=== PATIENT | male | born 1975 | race Caucasian/White ===

== ENCOUNTER 2016-11-07 00:04 | Inpatient (IN) | payer BC ==
[2016-11-07] MEDS ORDERED: Sodium Chloride 0.9% 1,000 ML IV ONE ×2 (00:28→01:36)
[2016-11-07] MEDS ORDERED: Insulin Regular, Human 100 Units/ML 10 ML Vial SUBCUT STA (00:31)
--- NOTE | 2016-11-07 00:33 | EDM.PDOC ---
ED HPI GENERAL MEDICAL PROBLEM - General Chief Complaint: Neurological Problem Stated Complaint: ILL FOR A MONTH, DIZZY AND FELL Time Seen by Provider: 11/07/16 00:32 Source of Information: Reports: Patient - History of Present Illness INITIAL COMMENTS - FREE TEXT/NARRATIVE: HISTORY AND PHYSICAL: History of present illness: [] Patient dizzy and fell in his home over the last couple of days polydipsia polyuria No fever nausea vomiting chills sweats Review of systems: As per history of present illness and below otherwise all systems reviewed and negative. Past medical history: As per history of present illness and as reviewed below otherwise noncontributory. Surgical history: As per history of present illness and as reviewed below otherwise noncontributory. Social history: No reported history of drug or alcohol abuse. Family history: As per history of present illness and as reviewed below otherwise noncontributory. Physical exam: HEENT: Atraumatic, normocephalic, pupils reactive, negative for conjunctival pallor or scleral icterus, mucous membranes moist, throat clear, neck supple, nontender, trachea midline. Lungs: Clear to auscultation, breath sounds equal bilaterally, chest nontender. Heart: S1S2, regular, negative for clicks, rubs, or JVD. Abdomen: Soft, nondistended, nontender. Negative for masses or hepatosplenomegaly. Negative for costovertebral tenderness. Pelvis: Stable nontender. Genitourinary: Deferred. Rectal: Deferred. Extremities: Atraumatic, negative for cords or calf pain. Neurovascular unremarkable. Neuro: Awake, alert, oriented. Cranial nerves II through XII unremarkable. Cerebellum unremarkable. Motor and sensory unremarkable throughout. Exam nonfocal. Diagnostics: [] Lab as below Therapeutics: [] Liter normal saline bolus 10 units regular insulin IV 10 units regular insulin subcutaneous Insulin drip titrate Patient admitted Impression: [] New-onset diabetes Hyperglycemia HONK Definitive disposition and diagnosis as appropriate pending reevaluation and review of above. - Related Data Allergies Allergy/AdvReac Type Severity Reaction Status Date / Time No Known Allergies Allergy Verified 11/07/16 00:26 Home Meds: Home Meds Insulin Aspart [NovoLOG] 15 unit SUBCUT TIDAC #10 pen 11/08/16 [Rx] Insulin Glarg,Human.Rec.Analog [LantUS Solostar] 38 units SUBCUT BEDTIME #10 pen 11/08/16 [Rx] ED ROS GENERAL - Review of Systems Review Of Systems: See Below ED EXAM, GENERAL - Physical Exam Exam: See Below Course - Vital Signs Last Recorded V/S: Last Vital Signs Temp 36.4 C 11/08/16 08:00 Pulse 116 H 11/07/16 02:16 Resp 15 11/08/16 12:00 BP 135/76 11/08/16 12:00 Pulse Ox 96 11/08/16 12:00 - Orders/Labs/Meds Labs: Laboratory Tests 11/07/16 11/07/16 11/07/16 Range/Units 00:11 00:18 00:25 WBC 14.17 H (4.0-11.0) K/uL RBC 5.56 (4.50-5.90) M/uL Hgb 16.5 (13.0-17.0) g/dL Hct 56.6 H (38.0-50.0) % MCV 101.8 H (80.0-98.0) fL MCH 29.7 (27.0-32.0) pg MCHC 29.2 L (31.0-37.0) g/dL RDW Std Deviation 50.0 (28.0-62.0) fl RDW Coeff of Giorgio 14 (11.0-15.0) % Plt Count 305 (150-400) K/uL MPV 12.10 H (7.40-12.00) fL Neut % (Auto) 87.8 H (48.0-80.0) % Lymph % (Auto) 8.0 L (16.0-40.0) % [place] % (Auto) 4.0 (0.0-15.0) % Eos % (Auto) 0.0 (0.0-7.0) % Baso % (Auto) 0.2 (0.0-1.5) % Neut # 12.4 H (1.4-5.7) K/uL Lymph # 1.1 (0.6-2.4) K/uL [place] # 0.6 (0.0-0.8) K/uL Eos # 0.0 (0.0-0.7) K/uL Baso # 0.0 (0.0-0.1) K/uL Nucleated RBC % 0.0 /100WBC Nucleated RBCs # 0 K/uL ABG pH (7.35-7.45) ABG pCO2 (35-45) mmHG ABG pO2 (75-100) mmHG ABG HCO3 (22-26) mEq/L ABG Total CO2 ABG Base Excess (-2.0-2.0) Sodium (136-146) mmol/L Potassium (3.5-5.1) mmol/L Chloride (98-110) mmol/L Carbon Dioxide (21-31) mmol/L BUN (6.0-23.0) mg/dL Creatinine (0.6-1.5) mg/dL Est Cr Clr Drug Dosing Estimated GFR (MDRD) ml/min Glucose (60-110) mg/dL POC Glucose > 500 H (60-110) mg/dL Serum Osmolality (275-295) mosm/kg Calcium (8.8-10.8) mg/dL Total Bilirubin (0.1-1.5) mg/dL AST (5-40) IU/L ALT (8-54) IU/L Alkaline Phosphatase (40-150) Total Protein (6.0-8.0) g/dL Albumin (3.5-5.0) g/dL Globulin (2.0-3.5) g/dL Albumin/Globulin Ratio (1.3-2.8) Urine Color YELLOW Urine Appearance CLEAR Urine pH 5.5 (5.0-8.0) Ur Specific [place] <= 1.005 (1.001-1.035) Urine Protein NEGATIVE (NEGATIVE) mg/dL Urine Glucose (UA) >=1000 (NEGATIVE) mg/dL Urine Ketones TRACE H (NEGATIVE) mg/dL Urine Occult Blood NEGATIVE (NEGATIVE) Urine Nitrite NEGATIVE (NEGATIVE) Urine Bilirubin NEGATIVE (NEGATIVE) Urine Urobilinogen 0.2 (<2.0) EU/dL Ur Leukocyte Esterase NEGATIVE (NEGATIVE) Urine RBC NONE SEEN (0-2/HPF) Urine WBC NONE SEEN (0-5/HPF) Ur Epithelial Cells RARE (NONE-FEW) Urine Bacteria FEW (NEGATIVE) 11/07/16 11/07/16 11/07/16 Range/Units 00:25 00:25 01:25 WBC (4.0-11.0) K/uL RBC (4.50-5.90) M/uL Hgb (13.0-17.0) g/dL Hct (38.0-50.0) % MCV (80.0-98.0) fL MCH (27.0-32.0) pg MCHC (31.0-37.0) g/dL RDW Std Deviation (28.0-62.0) fl RDW Coeff of Giorgio (11.0-15.0) % Plt Count (150-400) K/uL MPV (7.40-12.00) fL Neut % (Auto) (48.0-80.0) % Lymph % (Auto) (16.0-40.0) % [place] % (Auto) (0.0-15.0) % Eos % (Auto) (0.0-7.0) % Baso % (Auto) (0.0-1.5) % Neut # (1.4-5.7) K/uL Lymph # (0.6-2.4) K/uL [place] # (0.0-0.8) K/uL Eos # (0.0-0.7) K/uL Baso # (0.0-0.1) K/uL Nucleated RBC % /100WBC Nucleated RBCs # K/uL ABG pH (7.35-7.45) ABG pCO2 (35-45) mmHG ABG pO2 (75-100) mmHG ABG HCO3 (22-26) mEq/L ABG Total CO2 ABG Base Excess (-2.0-2.0) Sodium 126 L (136-146) mmol/L Potassium 6.4 H (3.5-5.1) mmol/L Chloride 82 L (98-110) mmol/L Carbon Dioxide 21 (21-31) mmol/L BUN 32 H (6.0-23.0) mg/dL Creatinine 2.5 H (0.6-1.5) mg/dL Est Cr Clr Drug Dosing TNP Estimated GFR (MDRD) 28.9 ml/min Glucose 1616 H* (60-110) mg/dL POC Glucose > 500 H (60-110) mg/dL Serum Osmolality 383 H (275-295) mosm/kg Calcium 11.3 H (8.8-10.8) mg/dL Total Bilirubin 1.3 (0.1-1.5) mg/dL AST 16 (5-40) IU/L ALT 35 (8-54) IU/L Alkaline Phosphatase 170 H (40-150) Total Protein 10.4 H (6.0-8.0) g/dL Albumin 4.5 (3.5-5.0) g/dL Globulin 5.9 H (2.0-3.5) g/dL Albumin/Globulin Ratio 0.8 L (1.3-2.8) Urine Color Urine Appearance Urine pH (5.0-8.0) Ur Specific [place] (1.001-1.035) Urine Protein (NEGATIVE) mg/dL Urine Glucose (UA) (NEGATIVE) mg/dL Urine Ketones (NEGATIVE) mg/dL Urine Occult Blood (NEGATIVE) Urine Nitrite (NEGATIVE) Urine Bilirubin (NEGATIVE) Urine Urobilinogen (<2.0) EU/dL Ur Leukocyte Esterase (NEGATIVE) Urine RBC (0-2/HPF) Urine WBC (0-5/HPF) Ur Epithelial Cells (NONE-FEW) Urine Bacteria (NEGATIVE) 11/07/16 Range/Units 01:35 WBC (4.0-11.0) K/uL RBC (4.50-5.90) M/uL Hgb (13.0-17.0) g/dL Hct (38.0-50.0) % MCV (80.0-98.0) fL MCH (27.0-32.0) pg MCHC (31.0-37.0) g/dL RDW Std Deviation (28.0-62.0) fl RDW Coeff of Giorgio (11.0-15.0) % Plt Count (150-400) K/uL MPV (7.40-12.00) fL Neut % (Auto) (48.0-80.0) % Lymph % (Auto) (16.0-40.0) % [place] % (Auto) (0.0-15.0) % Eos % (Auto) (0.0-7.0) % Baso % (Auto) (0.0-1.5) % Neut # (1.4-5.7) K/uL Lymph # (0.6-2.4) K/uL [place] # (0.0-0.8) K/uL Eos # (0.0-0.7) K/uL Baso # (0.0-0.1) K/uL Nucleated RBC % /100WBC Nucleated RBCs # K/uL ABG pH 7.420 (7.35-7.45) ABG pCO2 37 (35-45) mmHG ABG pO2 87 (75-100) mmHG ABG HCO3 24 (22-26) mEq/L ABG Total CO2 20.5 ABG Base Excess -0.2 (-2.0-2.0) Sodium (136-146) mmol/L Potassium (3.5-5.1) mmol/L Chloride (98-110) mmol/L Carbon Dioxide (21-31) mmol/L BUN (6.0-23.0) mg/dL Creatinine (0.6-1.5) mg/dL Est Cr Clr Drug Dosing Estimated GFR (MDRD) ml/min Glucose (60-110) mg/dL POC Glucose (60-110) mg/dL Serum Osmolality (275-295) mosm/kg Calcium (8.8-10.8) mg/dL Total Bilirubin (0.1-1.5) mg/dL AST (5-40) IU/L ALT (8-54) IU/L Alkaline Phosphatase (40-150) Total Protein (6.0-8.0) g/dL Albumin (3.5-5.0) g/dL Globulin (2.0-3.5) g/dL Albumin/Globulin Ratio (1.3-2.8) Urine Color Urine Appearance Urine pH (5.0-8.0) Ur Specific [place] (1.001-1.035) Urine Protein (NEGATIVE) mg/dL Urine Glucose (UA) (NEGATIVE) mg/dL Urine Ketones (NEGATIVE) mg/dL Urine Occult Blood (NEGATIVE) Urine Nitrite (NEGATIVE) Urine Bilirubin (NEGATIVE) Urine Urobilinogen (<2.0) EU/dL Ur Leukocyte Esterase (NEGATIVE) Urine RBC (0-2/HPF) Urine WBC (0-5/HPF) Ur Epithelial Cells (NONE-FEW) Urine Bacteria (NEGATIVE) Meds: Medications Discontinued Medications Generic Name Dose Route Start Last Admin Trade Name Freq PRN Reason Stop Dose Admin Albuterol/Ipratropium 3 ml 11/07/16 02:54 Duoneb 3.0-0.5 Mg/3 Ml NEB Q4HRRT PRN Shortness Of Breath/wheezing Enoxaparin Sodium 40 mg 11/07/16 09:00 11/08/16 09:08 Lovenox SUBCUT 40 mg DAILY LETTY Administration Sodium Chloride 1,000 mls @ 999 mls/hr 11/07/16 00:28 11/07/16 00:36 Normal Saline IV 11/07/16 01:28 999 mls/hr STAT ONE Administration Sodium Chloride 1,000 mls @ 999 mls/hr 11/07/16 01:36 11/07/16 01:37 Normal Saline IV 11/07/16 02:36 999 mls/hr .Bolus ONE Administration Insulin Human Regular 100 unit 100 mls @ 5 mls/hr 11/07/16 02:15 11/07/16 13: 15 / Sodium Chloride IV 3 unit/hr TITRATE LETTY 3 mls/hr Protocol Titration 5 UNIT/HR Sodium Chloride 1,000 mls @ 999 mls/hr 11/07/16 03:30 11/07/16 04:14 Normal Saline IV 11/07/16 04:31 Not Given ASDIRECTED LETTY Sodium Chloride 1,000 mls @ 999 mls/hr 11/07/16 03:45 11/07/16 05:00 Normal Saline IV 11/07/16 04:46 999 mls/hr ASDIRECTED LETTY Administration Sodium Chloride 1,000 mls @ 125 mls/hr 11/07/16 04:00 11/08/16 00:59 Normal Saline IV 125 mls/hr ASDIRECTED LETTY Administration Magnesium Sulfate 2 gm/ Premix 50 mls @ 50 mls/hr 11/07/16 14:52 11/07/16 15: 10 IV 11/07/16 15:51 50 mls/hr ONETIME ONE Administration Insulin Aspart 0 unit 11/07/16 20:00 11/08/16 17:14 Novolog SUBCUT 6 units Q4H LETTY Administration Protocol Insulin Aspart 10 unit 11/08/16 11:30 11/08/16 11:40 Novolog SUBCUT 10 units TIDAC LETTY Administration Insulin Aspart 15 unit 11/08/16 13:41 11/08/16 17:14 Novolog SUBCUT 15 units TIDAC LETTY Administration Insulin Glargine 30 units 11/07/16 21:00 11/07/16 20:16 Lantus Solostar SUBCUT 30 units BEDTIME LETTY Administration Insulin Glargine 36 units 11/08/16 21:00 Lantus Solostar SUBCUT BEDTIME LETTY Insulin Glargine 40 units 11/08/16 21:00 Lantus Solostar SUBCUT BEDTIME LETTY Insulin Human Regular 10 unit 11/07/16 00:28 11/07/16 00:40 Novolin R IVPUSH 11/07/16 00:29 10 units ONETIME ONE Administration Protocol Insulin Human Regular 10 unit 11/07/16 00:31 11/07/16 00:39 Novolin R SUBCUT 11/07/16 00:32 10 units NOW STA Administration Protocol Insulin Human Regular 0 unit 11/07/16 14:55 11/07/16 20:28 Novolin R SUBCUT Not Given Q4HR [facility] Protocol Methylprednisolone Sodium Succinate 60 mg 11/08/16 13:30 11/08/16 13:42 Solu-Medrol IVPUSH Not Given Q6H [facility] Morphine Sulfate 2 mg 11/07/16 02:54 Morphine IVPUSH Q2H PRN Pain (severe 7-10) Potassium Chloride 40 meq 11/07/16 14:50 11/07/16 15:10 Klor-Con M20 PO 11/07/16 14:51 40 meq ONETIME ONE Administration Sodium Chloride 10 ml 11/07/16 02:54 Saline Flush FLUSH ASDIRECTED PRN Keep Vein Open Sodium Chloride 2.5 ml 11/07/16 02:54 Saline Flush FLUSH ASDIRECTED PRN Keep Vein Open Departure - Departure Time of Disposition: 19:26 Disposition: Admitted As Inpatient 68 Condition: good Clinical Impression: Hyperosmolar non-ketotic state in patient with type 2 diabetes mellitus
[2016-11-07] MEDS: Insulin Regular, Human 100 Units/ML 10 ML Vial IVPUSH ONE ×2 (00:37→00:40)
[2016-11-07 01:21] LABS: CHLORIDE,CL 82 mmol/L (98-110); SODIUM,NA 126 mmol/L (136-146)
[2016-11-07] MEDS ORDERED: Sodium Chloride 0.9% 10 ML Syringe FLUSH PRN (02:54)
[2016-11-07] MEDS ORDERED: Morphine 2 MG/ML Syringe IVPUSH PRN (02:54)
[2016-11-07] MEDS ORDERED: Sodium Chloride 0.9% 2.5 ML Syringe FLUSH PRN (02:54)
[2016-11-07] MEDS ORDERED: Albuterol/Ipratropium 3.0-0.5 MG/3 ML Neb Soln NEB PRN (02:54)
[2016-11-07] MEDS: Sodium Chloride 0.9% 1,000 ML IV SCH ×4 (03:37→17:44)
[2016-11-07] MEDS ORDERED: Sodium Chloride 0.9% 1,000 ML IV SCH (03:45)
[2016-11-07] MEDS: Enoxaparin 40 MG/0.4 ML Syringe SUBCUT SCH (08:33)
[2016-11-07 10:04] LABS: CHLORIDE,CL 102 mmol/L (98-110); SODIUM,NA 141 mmol/L (136-146)
[2016-11-07 11:33] LABS: CHLORIDE,CL 104 mmol/L (98-110); SODIUM,NA 142 mmol/L (136-146)
[2016-11-07 13:43] LABS: CHLORIDE,CL 103 mmol/L (98-110); SODIUM,NA 140 mmol/L (136-146)
[2016-11-07] MEDS ORDERED: Potassium Chloride 20 MEQ Tab.ER PO ONE (14:50)
[2016-11-07] MEDS ORDERED: Magnesium Sulfate/Water 2 GM in Premix Bag 1 BAG IV ONE (14:52)
[2016-11-07] MEDS: Insulin Regular, Human 100 Units/ML 10 ML Vial SUBCUT SCH ×3 (15:07→20:28)
--- NOTE | 2016-11-07 16:50 | CT ---
EXAM DATE: 11/07/16 PATIENT'S AGE: 41 Patient: RONN PERALTA Facility: [place], [place] Site . Site : 1975 Study: CT Head [id number] 3:54:32 AM Ordering Physician: Herman Whitaker Final Report: INDICATION: fell INDICATION: Fall TECHNIQUE: CT head without contrast. COMPARISON: None FINDINGS: CSF spaces: Within normal limits for age. Brain parenchyma: The cummins-white differentiation is normal. No sign of mass, hemorrhage, or midline shift. Skull base and calvarium: The visualized paranasal sinuses and mastoid air cells demonstrate no acute or significant findings. The visualized orbits are grossly unremarkable. No skull fractures. IMPRESSION: Unremarkable noncontrast head CT. No evidence of acute intracranial trauma. Dictated by Rahul Swenson MD @ 11/07/2016 3:59:49 AM Dictated by: Rahul Swenson MD @ 11/07/2016 04:00:32 (Electronic Signature) Report Signed by Proxy and Original Signed Document filed in the Medical Record. [facility]
--- NOTE | 2016-11-07 18:49 | PCM.SN ---
- Free Text/Narrative Note: [id number]
[2016-11-07] MEDS: Insulin Aspart 100 Units/ML 3 ML Pen SUBCUT SCH ×2 (20:15→23:53)
[2016-11-07] MEDS ORDERED: Insulin Glargine,Human Rec. Analog 100 Units/ML 3 ML Pen SUBCUT SCH (21:00)
[2016-11-08] MEDS: Sodium Chloride 0.9% 1,000 ML IV SCH (00:59)
[2016-11-08] MEDS: Insulin Aspart 100 Units/ML 3 ML Pen SUBCUT SCH ×4 (03:41→17:14)
[2016-11-08 07:40] LABS: CHLORIDE,CL 100 mmol/L (98-110)
[2016-11-08 07:43] LABS: SODIUM,NA 135 mmol/L (136-146)
[2016-11-08] MEDS: Enoxaparin 40 MG/0.4 ML Syringe SUBCUT SCH (09:08)
[2016-11-08] MEDS ORDERED: Insulin Aspart 100 Units/ML 3 ML Pen SUBCUT SCH ×2 (11:30→13:41)
[2016-11-08] MEDS ORDERED: methylPREDNISolone Sodium Succinate 40 MG/1 ML SDV IVPUSH SCH (13:30)
[2016-11-08 14:24] VITALS: BP 135/76
--- NOTE | 2016-11-08 19:40 | PCM.SN ---
- Free Text/Narrative Note: [id number]
[2016-11-08] MEDS ORDERED: Insulin Glargine,Human Rec. Analog 100 Units/ML 3 ML Pen SUBCUT SCH ×2 (21:00)
--- NOTE | 2016-11-10 09:21 | HP ---
DATE OF : 1975 PRIMARY CARE PHYSICIAN: None PCP HISTORY OF PRESENT ILLNESS: The patient is a 41-year-old man, who presented to the emergency room because the patient felt dizzy in the bathroom around 12 midnight and he hit the wall in his apartment with his face. The TV fell down and his partner called EMS and he came to the emergency room. The patient has increased urination and increased thirst for the past few months and he states he lost about 30 pounds over the past 1 month. He also complained of feeling weakness in bilateral hands. He has difficulty to grab the door knob with his hands and complains of generalized weakness. PAST MEDICAL HISTORY: None. PAST SURGICAL HISTORY: None. ALLERGIES: The patient does not have any drug allergies. SOCIAL HISTORY: He does not drink alcohol. He smokes about half a pack per day and he said he did not smoke for the past 2 months and occasionally, he smokes marijuana. He does not currently have a job. FAMILY HISTORY: His mother was recently diagnosed with diabetes and his father is healthy. REVIEW OF SYSTEMS: A 12-point review of system is negative except as in history of present illness. PHYSICAL EXAMINATION: VITAL SIGNS: At admission, temperature 97.6, pulse rate 119, blood pressure 1871/121 and respiratory rate 18, oxygen saturation 97%. HEENT: Head, the patient has some erythema on the right eyebrow. His head is normocephalic. Pupils equally reactive to light. He has very dry oral mucosa and dry tongue. No throat erythema. NECK: Supple. No thyromegaly, no lymphadenopathy. HEART: S1, S2. Regular rhythm and rate. LUNGS: Clear to auscultation bilaterally. ABDOMEN: Soft. Nontender. Positive bowel sounds. EXTREMITIES: No edema. NEUROLOGIC: The patient is alert, oriented x3. There are no gross focal neurologic deficits. Sensation are intact to light touch. Muscle strength is 5/5 throughout. Finger-nose test is normal. Cranial nerves II through XII grossly intact. SKIN: No rash. Decreased turgor. LABORATORY DATA: At admission, WBC 14.19, hemoglobin 16.7, hematocrit 56.6, MCV 101.8. ABG show pH of 7.42, PCO2 37, PO2 87, bicarbonate 24. Sodium 126, potassium 6.4, chloride 82, carbon dioxide 21, BUN 32, creatinine 2.5. Estimated GFR 28.9, glucose 1616, AST 16, ALT 35, alkaline phosphatase 17, protein 10.4, albumin 4.5, globulin 5.9, hemoglobin A1c 12.6. Head CT was negative for acute disease, bleeding or ischemia. EKG showed sinus rhythm at 104, probably left atrium enlargement and complete right bundle branch block. Urinalysis show ketone trace and urine glucose more than 1000, pH 5.5, specific gravity less than 1.005, wbc none seen, rbc none seen. Leukocyte esterase negative. ASSESSMENT AND PLAN: Hyperglycemic, hyperosmolic state and diabetic ketoacidosis and hyponatremia, hyperkalemia, acute kidney insufficiency, elevated LFTs, hypercalcemia, new onset diabetes mellitus. We will admit the patient to ICU with insulin drip as per protocol. eICU was consulted and the patient received in the ER 20 units of regular insulin IV and 2 liter of normal saline. It was recommended by eICU. The patient should receive another 2 liters normal saline boluses. Afterwards, the patient should be continued with IV fluids normal saline hourly rate as per AICU. We will also childbirth educator and we will monitor electrolytes. Hyperkalemia. The patient received insulin 20 units IV. Follow up on next BMP. For acute kidney insufficiency, the patient will get IV fluids, f/up kidney function. For hypercalcemia, IV fluids. Follow up calcium level. For elevated LFTs, We will follow up liver function test for the Abnormal EKG. We will repeat EKG when the patient is more stable regarding his electrolytes and hyperglycemic hyperosmolar state. DVT prophylaxis, heparin subcu. For head trauma, we will do neuro check every 2 hours. For tobacco abuse, the patient was counseled to stop smoking. For drug use, the patient was advised to stop using marijuana. ANTOPET / MODL /[id number] ESTHER
--- NOTE | 2016-11-10 09:27 | DISCH ---
DATE OF DISCHARGE: 11/08/2016 PRIMARY CARE PHYSICIAN: None PCP HPI The patient is a 41-year-old male who was admitted to the hospital on 11/07/2016 due to generalized weakness and hyperglycemia around 1600. The patient was admitted to ICU. He also has profound dehydration and he said he lost about 30 pounds weight and has increased polyuria, polydipsia. HOSPITAL COURSE He was admitted to ICU and was treated with insulin drip and IV fluids and his hyperglycemia resolved. He was also found to have positive ketones in the blood and urine. The patient last night was switched to insulin 30 units subcutaneous and his last sugar in the morning was around 295. The patient was given about 10 units with meals, which later was increased to 15 units with meals and insulin on high sliding scale. The patient's blood sugar decreased to low 200s and he was discharged home with Lantus 38 units at bedtime and insulin aspart 15 units with meals. The patient was instructed how to check his blood sugar and how to use insulin by the railroad signal technician. He also had CT of the head which was negative , neurochecks q2 h because the patient was found dizzy prior to arrival to the emergency room and hit the head on the wall. His hemoglobin A1c was 12.6. PHYSICAL EXAMINATION: VITAL SIGNS: At discharge, his heart rate was 81, blood pressure 135/76, respiratory rate 15, and oxygen saturation was 96. HEENT: Head is atraumatic and normocephalic. Pupils are equal and reactive to light. NECK: Supple. No thyromegaly and no lymphadenopathy. HEART: S1 and S2. Regular rate and rhythm. No murmur. LUNGS: Clear to auscultation bilaterally. ABDOMEN: Soft and nontender. Positive bowel sounds. EXTREMITIES: No edema. DISCHARGE CONDITION: Stable. ACTIVITY: As tolerated. DISCHARGE DIET: The patient was recommended other diabetic diet. DISCHARGE INSTRUCTIONS: The patient will follow up with his PCP upon discharge within 1 week. He was also given glucometer strips and lancets for the glucometer and insulin . DISCHARGE DIAGNOSES: 1. Hyperglycemic Hyperosmolar state 2. diabetic ketoacidosis. 3. New-onset diabetes mellitus. 4. Elevated blood pressure. 5. head trauma ANTOPET / MODL /[id number] ESTHER
== END 2016-11-08 18:42 | disposition home or self-care (01) | DRG 420 ==
LOC: MW.ED 00:04 → MW.ICU 02:15
PROVIDERS: ADMIT Internal Medicine; ATTEND Internal Medicine
DX: E13.10 Other specified diabetes mellitus with ketoacidosis without coma (principal); Z79.4 Long term (current) use of insulin; E87.1 Hypo-osmolality and hyponatremia; E87.5 Hyperkalemia; N17.9 Acute kidney failure, unspecified; R79.89 Other specified abnormal findings of blood chemistry; E83.52 Hypercalcemia; R94.31 Abnormal electrocardiogram [ECG] [EKG]; S09.90XA Unspecified injury of head, initial encounter; W19.XXXA Unspecified fall, initial encounter; F17.200 Nicotine dependence, unspecified, uncomplicated; F12.90 Cannabis use, unspecified, uncomplicated
CPT/HCPCS: 36415; 36600; 70450; 70450-26; 80048; 80053; 81001; 81003; 82009; 82803; 82962; 83036; 83735; 83930; 84100; 85025; 85027; 93005; 96361; 96372; 96374; 99285; 99285-25; A9270-GY; J1650; J1815-GY ×2; J3475; J7040

== ENCOUNTER → 2016-11-25 | Outpatient (CLI) | payer BC ==
[2016-11-25 10:28] LABS: CHLORIDE,CL 107 mmol/L (98-110); SODIUM,NA 139 mmol/L (136-146)
== END ==
LOC: MW.CHIM 09:50
PROVIDERS: ATTEND Internal Medicine
DX: E11.9 Type 2 diabetes mellitus without complications (principal)
CPT/HCPCS: 36415; 80053; 80061; 82044; 84681

== ENCOUNTER 2021-04-22 13:20 | Inpatient (IN) | payer OTHER ==
[2021-04-22] MEDS ORDERED: Lactated Ringers 1,000 ML IV ONE ×2 (13:29→22:53)
[2021-04-22] MEDS ORDERED: Lactated Ringers 1,000 ML IV SCH ×2 (13:30→16:15)
--- NOTE | 2021-04-22 13:37 | EDM.PDOC ---
ED HPI GENERAL MEDICAL PROBLEM - General Chief Complaint: General Stated Complaint: EXTREMLY HIGH BLOOD GLUCOSE/ AT RISK FOR DKA Time Seen by Provider: 04/22/21 13:34 Source of Information: Reports: Patient History Limitations: Reports: No Limitations - History of Present Illness INITIAL COMMENTS - FREE TEXT/NARRATIVE: HISTORY AND PHYSICAL: History of present illness: Patient is a 45-year-old male who presents to the emergency room with complaints of elevated blood sugar and feeling generally unwell over the past 1 month. Patient states he has had type 2 diabetes since 2017. Initially he was placed on insulin to manage his diabetes but 4 years ago was taken off. He has been on oral Metformin but due to cost has not taken this over the past 3 to 4 months. He states he generally feels unwell over the past 1 month and has checked his blood sugars and they have been greater than 400. Patient denies any fever, chills, headache, change in vision, syncope or near syncope. Denies any chest pain, back pain, shortness of breath or cough. Denies any abdominal pain, nausea, vomiting, diarrhea, constipation or dysuria. Has not noted any blood in urine or stool. Patient has been eating and drinking appropriately. Review of systems: As per history of present illness and below otherwise all systems reviewed and negative. Past medical history: As per history of present illness and as reviewed below otherwise noncontributory. Surgical history: As per history of present illness and as reviewed below otherwise noncontributory. Social history: See social history for further information Family history: As per history of present illness and as reviewed below otherwise noncontributory. Physical exam: General: Well developed and well nourished 45-year-old male. Alert and orientated x 3. Nontoxic in appearance and in no acute distress. Vital signs are stable and have been reviewed by me. Nursing notes were reviewed. HEENT: Atraumatic, normocephalic, pupils equal and reactive bilaterally, negative for conjunctival pallor or scleral icterus, mucous membranes moist, trachea midline. No drooling or trismus noted. No meningeal signs. No hot potato voice noted. Lungs: Clear to auscultation bilaterally. No wheezes, rales, or rhonchi. Chest nontender. Normal work of breathing, no accessory muscles used. Heart: S1S2, regular rate and rhythm without overt murmur, gallops, or rubs. No JVD. No peripheral edema Abdomen: Soft, nondistended, nontender. Normoactive bowel sounds. Negative for masses or costovertebral tenderness. Skin: Intact, warm, dry. No lesions or rashes noted. Hematologic: No petechiae or purpra. Mucosa appropriate color and normal nail bed color and refill. Extremities: Atraumatic, moves all extremities per self without difficulty or deficits, negative for cords or calf pain. Neurovascular unremarkable. Neuro: Awake, alert, oriented. Cranial nerves II through XII unremarkable. Cerebellum unremarkable. Motor and sensory unremarkable throughout. Exam nonfocal. Psychiatric: Mood and affect are appropriate. Normal thought process. Answering questions appropriately. Notes: *This patient was seen and evaluated during the 2019 SARS-CoV-2 novel coronavirus pandemic period. Community viral transmission is ongoing at time of this encounter and the emergency department is operating under pandemic response procedures. Patient is a 45-year-old male who presents to the emergency room with complaints of generally feeling unwell. He attempted to go to the clinic and they were concerned he was at risk for DKA due to his blood sugars being over 400. Patient states he has not taken his Metformin in over 3 months as he is unable to afford his medication. Physical exam is unremarkable. He is agreeable to lab work and possible admission. Lab has had to redilute his CMP as the are stating his triglycerides are greater than 2000. This will take longer to receive his appropriate glucose. His vital signs are stable and he has received 2 L of fluids. Patient's blood sugar is 781, lactate of 3.9. Sodium is 123, corrected sodium is 134-139. Insulin and insulin drip have been initiated. I spoke with Dr. Negron about keeping this patient for further care and management. [facility] I have talked with the patient about today's findings, in addition to providing specific details for plan of care. Reassessment at the time of disposition demonstrates that the patient is in no acute distress. Blood sugars will be continued to be monitored until he is transferred to the floor Diagnostics: CBC, CMP, Lipase, UA, ABG, COVID-19, EKG, Troponin, TSH, INR, Ketones Therapeutics: IV fluids, Insulin, insulin drip Impression: Medication noncompliance due to cost DKA Definitive disposition and diagnosis as appropriate pending reevaluation and review of above. Duration: Week(s): - Related Data Allergies Allergy/AdvReac Type Severity Reaction Status Date / Time No Known Allergies Allergy Verified 04/22/21 17:47 Home Meds: Home Meds . [No Known Home Meds] 04/22/21 [History] Past Medical History - Past Health History Medical/Surgical History: Denies Medical/Surgical History HEENT History: Reports: None Cardiovascular History: Reports: None Respiratory History: Reports: None Gastrointestinal History: Reports: None Genitourinary History: Reports: None Musculoskeletal History: Reports: None Neurological History: Reports: None Psychiatric History: Reports: None Endocrine/Metabolic History: Reports: Diabetes, Type II Hematologic History: Reports: None Immunologic History: Reports: None Oncologic (Cancer) History: Reports: None Dermatologic History: Reports: None - Infectious Disease History Infectious Disease History: Reports: Chicken Pox - Past Surgical History Head Surgeries/Procedures: Reports: None Social & Family History - Family History Family Medical History: No Pertinent Family History HEENT: Reports: None Endocrine/Metabolic: Reports: Diabetes, type II - Tobacco Use Tobacco Use Status *Q: Never Tobacco User - Caffeine Use Caffeine Use: Reports: None - Recreational Drug Use Recreational Drug Use: No ED ROS GENERAL - Review of Systems Review Of Systems: Comprehensive ROS is negative, except as noted in HPI. ED EXAM, GENERAL - Physical Exam Exam: See Below (See dictation) Course - Vital Signs Last Recorded V/S: Last Vital Signs Temp 97.2 F 04/22/21 17:00 Pulse 86 04/22/21 19:00 Resp 16 04/22/21 19:00 BP 126/62 04/22/21 19:00 Pulse Ox 95 04/22/21 19:00 - Orders/Labs/Meds Orders: Active Orders 24 hr Category Date Time Status Admission Status [Patient Status] [ADT] Stat ADT 04/22/21 15:42 Active Dextrose 50% in Water Med 04/22/21 15:29 Active 50 ml IVPUSH ASDIRECTED PRN Glucagon,Human Recombinant [GlucaGen] Med 04/22/21 15:29 Active 1 mg IM ASDIRECTED PRN Lactated Ringers [Ringers, Lactated] 1,000 ml Med 04/22/21 13:30 Active IV ASDIRECTED Medication Orders Albuterol/Ipratropium (Albuterol/Ipratropium 3.0-0.5 Mg/3 Ml Neb Soln) 3 ml NEB Q4HRRT PRN PRN Reason: Shortness of Breath Dextrose/Water (50% Dextrose In Water 50 Ml Syringe) 50 ml IVPUSH ASDIRECTED PRN PRN Reason: Hypoglycemia Dextrose/Water (50% Dextrose In Water 50 Ml Syringe) 50 ml IVPUSH ASDIRECTED PRN PRN Reason: Hypoglycemia Glucagon (Glucagon,Human Recombinant 1 Mg Vial) 1 mg IM ASDIRECTED PRN PRN Reason: Hypoglycemia Glucagon (Glucagon,Human Recombinant 1 Mg Vial) 1 mg IM ASDIRECTED PRN PRN Reason: Hypoglycemia Lactated Ringer's (Ringers, Lactated) 1,000 mls @ 999 mls/hr IV ASDIRECTED LETTY Last Admin: 04/22/21 13:37 Dose: 999 mls/hr Documented by: TONI Pantoprazole Sodium 40 mg/ (Sodium Chloride) 10 mls @ 300 mls/hr IV Q24H LETTY Last Admin: 04/22/21 17:13 Dose: 300 mls/hr Documented by: BARBRA Insulin Regular in 0.9 % NACL (Myxredlin In Ns 100 Unit/100 Ml) 100 mls @ 4 mls/hr IV TITRATE LETTY; Protocol Last Titration: 04/22/21 19:02 Dose: 3 mls/hr, 3 mls/hr Documented by: BARBRA Cosigned by: MIGUEL ÁNGEL Titration: 04/22/21 18:15 Dose: 2.5 mls/hr, 2.5 mls/hr Documented by: BARBRA Cosigned by: TAYLOR Admin: 04/22/21 17:05 Dose: 4 mls/hr, 4 mls/hr Documented by: BARBRA Cosigned by: TAYLOR Dextrose/Sodium Chloride (Dextrose 5%-1/2 Ns) 1,000 mls @ 125 mls/hr IV ASDIRECTED LETTY Last Infusion: 04/22/21 18:33 Dose: 0 mls/hr Documented by: Admin: 04/22/21 18:27 Dose: 125 mls/hr Documented by: BARBRA Insulin Aspart (Insulin Aspart 100 Units/Ml 3 Ml Pen) 0 unit SUBCUT TIDAC LETTY; Protocol Insulin Glargine (Insulin Glargine,Human Rec. Analog 100 Units/Ml 3 Ml Pen) 5 units SUBCUT BEDTIME LETTY Last Admin: 04/22/21 19:05 Dose: 5 unit Documented by: BARBRA Ondansetron HCl (Ondansetron 4 Mg/2 Ml Sdv) 4 mg IVPUSH Q4H PRN PRN Reason: Nausea/Vomiting Labs: Laboratory Tests 04/22/21 04/22/21 04/22/21 Range/Units 13:30 13:30 13:30 WBC 7.29 (4.0-11.0) K/uL RBC 5.17 (4.50-5.90) M/uL Hgb 15.9 (13.0-17.0) g/dL Hct 45.2 (38.0-50.0) % MCV 87.4 (80.0-98.0) fL MCH 30.8 (27.0-32.0) pg MCHC 35.2 (31.0-37.0) g/dL RDW Std Deviation 41.5 (28.0-62.0) fl RDW Coeff of Giorgio 13 (11.0-15.0) % Plt Count 241 (150-400) K/uL MPV 11.00 (7.40-12.00) fL Neut % (Auto) 66.3 (48.0-80.0) % Lymph % (Auto) 22.8 (16.0-40.0) % [place] % (Auto) 8.1 (0.0-15.0) % Eos % (Auto) 2.1 (0.0-7.0) % Baso % (Auto) 0.7 (0.0-1.5) % Neut # (Auto) 4.8 (1.4-5.7) K/uL Lymph # (Auto) 1.7 (0.6-2.4) K/uL [place] # (Auto) 0.6 (0.0-0.8) K/uL Eos # (Auto) 0.2 (0.0-0.7) K/uL Baso # (Auto) 0.1 (0.0-0.1) K/uL Nucleated RBC % 0.0 /100WBC Nucleated RBCs # 0 K/uL INR 0.94 ABG pH (7.35-7.45) ABG pCO2 (35-45) mmHG ABG pO2 (80-105) mmHG ABG HCO3 (22-26) mEq/L ABG Total CO2 (23-27) mmol/L ABG Base Excess (-2.0-3.0) Sodium 123 L (136-148) mmol/L Potassium 5.4 H (3.5-5.1) mmol/L Chloride 88 L (98-107) mmol/L Carbon Dioxide 15.3 L (21.0-32.0) mmol/L BUN 16 (7.0-18.0) mg/dL Creatinine 1.1 (0.8-1.3) mg/dL Est Cr Clr Drug Dosing 103.49 mL/min Estimated GFR (MDRD) > 60.0 ml/min Glucose 781 H* (74-106) mg/dL Hemoglobin A1c (4.5 - 6.2) % Lactic Acid (0.4-2.0) mmol/L Calcium 8.0 L (8.5-10.1) mg/dL Magnesium 2.2 (1.8-2.4) mg/dL Total Bilirubin 0.7 (0.2-1.0) mg/dL AST 38 H (15-37) IU/L ALT 60 (14-63) IU/L Alkaline Phosphatase 131 H (46-116) U/L Troponin I < 0.050 (0.000-0.056) ng/mL Total Protein 7.4 (6.4-8.2) g/dL Albumin 3.8 (3.4-5.0) g/dL Globulin 3.6 (2.6-4.0) g/dL Albumin/Globulin Ratio 1.1 (0.9-1.6) Lipase 148 (73-393) U/L TSH, Ultra Sensitive 2.13 (0.36-3.74) uIU/mL Urine Color Urine Appearance Urine pH (5.0-8.0) Ur Specific [place] (1.001-1.035) Urine Protein (NEGATIVE) mg/dL Urine Glucose (UA) (NEGATIVE) mg/dL Urine Ketones (NEGATIVE) mg/dL Urine Occult Blood (NEGATIVE) Urine Nitrite (NEGATIVE) Urine Bilirubin (NEGATIVE) Urine Urobilinogen (<2.0) EU/dL Ur Leukocyte Esterase (NEGATIVE) Ketones (NEG) SARS-CoV-2 RNA (SON) (NEGATIVE) 04/22/21 04/22/21 04/22/21 Range/Units 13:30 13:38 13:50 WBC (4.0-11.0) K/uL RBC (4.50-5.90) M/uL Hgb (13.0-17.0) g/dL Hct (38.0-50.0) % MCV (80.0-98.0) fL MCH (27.0-32.0) pg MCHC (31.0-37.0) g/dL RDW Std Deviation (28.0-62.0) fl RDW Coeff of Giorgio (11.0-15.0) % Plt Count (150-400) K/uL MPV (7.40-12.00) fL Neut % (Auto) (48.0-80.0) % Lymph % (Auto) (16.0-40.0) % [place] % (Auto) (0.0-15.0) % Eos % (Auto) (0.0-7.0) % Baso % (Auto) (0.0-1.5) % Neut # (Auto) (1.4-5.7) K/uL Lymph # (Auto) (0.6-2.4) K/uL [place] # (Auto) (0.0-0.8) K/uL Eos # (Auto) (0.0-0.7) K/uL Baso # (Auto) (0.0-0.1) K/uL Nucleated RBC % /100WBC Nucleated RBCs # K/uL INR ABG pH (7.35-7.45) ABG pCO2 (35-45) mmHG ABG pO2 (80-105) mmHG ABG HCO3 (22-26) mEq/L ABG Total CO2 (23-27) mmol/L ABG Base Excess (-2.0-3.0) Sodium (136-148) mmol/L Potassium (3.5-5.1) mmol/L Chloride (98-107) mmol/L Carbon Dioxide (21.0-32.0) mmol/L BUN (7.0-18.0) mg/dL Creatinine (0.8-1.3) mg/dL Est Cr Clr Drug Dosing mL/min Estimated GFR (MDRD) ml/min Glucose (74-106) mg/dL Hemoglobin A1c (4.5 - 6.2) % Lactic Acid 3.9 H* (0.4-2.0) mmol/L Calcium (8.5-10.1) mg/dL Magnesium (1.8-2.4) mg/dL Total Bilirubin (0.2-1.0) mg/dL AST (15-37) IU/L ALT (14-63) IU/L Alkaline Phosphatase (46-116) U/L Troponin I (0.000-0.056) ng/mL Total Protein (6.4-8.2) g/dL Albumin (3.4-5.0) g/dL Globulin (2.6-4.0) g/dL Albumin/Globulin Ratio (0.9-1.6) Lipase (73-393) U/L TSH, Ultra Sensitive (0.36-3.74) uIU/mL Urine Color Urine Appearance Urine pH (5.0-8.0) Ur Specific [place] (1.001-1.035) Urine Protein (NEGATIVE) mg/dL Urine Glucose (UA) (NEGATIVE) mg/dL Urine Ketones (NEGATIVE) mg/dL Urine Occult Blood (NEGATIVE) Urine Nitrite (NEGATIVE) Urine Bilirubin (NEGATIVE) Urine Urobilinogen (<2.0) EU/dL Ur Leukocyte Esterase (NEGATIVE) Ketones NEGATIVE (NEG) SARS-CoV-2 RNA (SON) NEGATIVE (NEGATIVE) 04/22/21 04/22/21 04/22/21 Range/Units 13:50 13:54 14:18 WBC (4.0-11.0) K/uL RBC (4.50-5.90) M/uL Hgb (13.0-17.0) g/dL Hct (38.0-50.0) % MCV (80.0-98.0) fL MCH (27.0-32.0) pg MCHC (31.0-37.0) g/dL RDW Std Deviation (28.0-62.0) fl RDW Coeff of Giorgio (11.0-15.0) % Plt Count (150-400) K/uL MPV (7.40-12.00) fL Neut % (Auto) (48.0-80.0) % Lymph % (Auto) (16.0-40.0) % [place] % (Auto) (0.0-15.0) % Eos % (Auto) (0.0-7.0) % Baso % (Auto) (0.0-1.5) % Neut # (Auto) (1.4-5.7) K/uL Lymph # (Auto) (0.6-2.4) K/uL [place] # (Auto) (0.0-0.8) K/uL Eos # (Auto) (0.0-0.7) K/uL Baso # (Auto) (0.0-0.1) K/uL Nucleated RBC % /100WBC Nucleated RBCs # K/uL INR ABG pH 7.37 (7.35-7.45) ABG pCO2 39 (35-45) mmHG ABG pO2 47 L (80-105) mmHG ABG HCO3 22 (22-26) mEq/L ABG Total CO2 19.7 L (23-27) mmol/L ABG Base Excess -2.8 L (-2.0-3.0) Sodium (136-148) mmol/L Potassium (3.5-5.1) mmol/L Chloride (98-107) mmol/L Carbon Dioxide (21.0-32.0) mmol/L BUN (7.0-18.0) mg/dL Creatinine (0.8-1.3) mg/dL Est Cr Clr Drug Dosing mL/min Estimated GFR (MDRD) ml/min Glucose (74-106) mg/dL Hemoglobin A1c 13.0 H (4.5 - 6.2) % Lactic Acid (0.4-2.0) mmol/L Calcium (8.5-10.1) mg/dL Magnesium (1.8-2.4) mg/dL Total Bilirubin (0.2-1.0) mg/dL AST (15-37) IU/L ALT (14-63) IU/L Alkaline Phosphatase (46-116) U/L Troponin I (0.000-0.056) ng/mL Total Protein (6.4-8.2) g/dL Albumin (3.4-5.0) g/dL Globulin (2.6-4.0) g/dL Albumin/Globulin Ratio (0.9-1.6) Lipase (73-393) U/L TSH, Ultra Sensitive (0.36-3.74) uIU/mL Urine Color YELLOW Urine Appearance CLEAR Urine pH 6.0 (5.0-8.0) Ur Specific [place] <= 1.005 (1.001-1.035) Urine Protein NEGATIVE (NEGATIVE) mg/dL Urine Glucose (UA) >=1000 (NEGATIVE) mg/dL Urine Ketones NEGATIVE (NEGATIVE) mg/dL Urine Occult Blood NEGATIVE (NEGATIVE) Urine Nitrite NEGATIVE (NEGATIVE) Urine Bilirubin NEGATIVE (NEGATIVE) Urine Urobilinogen 0.2 (<2.0) EU/dL Ur Leukocyte Esterase NEGATIVE (NEGATIVE) Ketones (NEG) SARS-CoV-2 RNA (SON) (NEGATIVE) Meds: Medications Generic Name Dose Route Start Last Admin Trade Name Freq PRN Reason Stop Dose Admin Albuterol/Ipratropium 3 ml 04/22/21 16:06 Albuterol/Ipratropium 3.0-0.5 Mg/3 Ml Neb Soln NEB Q4HRRT PRN Shortness of Breath Dextrose/Water 50 ml 04/22/21 15:29 50% Dextrose In Water 50 Ml Syringe IVPUSH ASDIRECTED PRN Hypoglycemia Dextrose/Water 50 ml 04/22/21 18:32 50% Dextrose In Water 50 Ml Syringe IVPUSH ASDIRECTED PRN Hypoglycemia Glucagon 1 mg 04/22/21 15:29 Glucagon,Human Recombinant 1 Mg Vial IM ASDIRECTED PRN Hypoglycemia Glucagon 1 mg 04/22/21 18:32 Glucagon,Human Recombinant 1 Mg Vial IM ASDIRECTED PRN Hypoglycemia Lactated Ringer's 1,000 mls @ 999 mls/hr 04/22/21 13:30 04/22/21 13:37 Ringers, Lactated IV 999 mls/hr ASDIRECTED LETTY Administration Pantoprazole Sodium 40 mg/ 10 mls @ 300 mls/hr 04/22/21 16:15 04/22/21 17:13 Sodium Chloride IV 300 mls/hr Q24H LETTY Administration Insulin Regular in 0.9 % NACL 100 mls @ 4 mls/hr 04/22/21 17:05 04/22/21 19:02 Myxredlin In Ns 100 Unit/100 Ml IV 3 mls/hr TITRATE LETTY 3 mls/hr Titration Protocol Dextrose/Sodium Chloride 1,000 mls @ 125 mls/hr 04/22/21 18:15 04/22/21 18:33 Dextrose 5%-1/2 Ns IV 0 mls/hr ASDIRECTED LETTY Infusion Insulin Aspart 0 unit 04/23/21 07:30 Insulin Aspart 100 Units/Ml 3 Ml Pen SUBCUT TIDAC LETTY Protocol Insulin Glargine 5 units 04/22/21 19:00 04/22/21 19:05 Insulin Glargine,Human Rec. Analog 100 Units/Ml 3 Ml Pen SUBCUT 5 unit BEDTIME LETTY Administration Ondansetron HCl 4 mg 04/22/21 16:05 Ondansetron 4 Mg/2 Ml Sdv IVPUSH Q4H PRN Nausea/Vomiting Discontinued Medications Generic Name Dose Route Start Last Admin Trade Name Freq PRN Reason Stop Dose Admin Lactated Ringer's 1,000 mls @ 999 mls/hr 04/22/21 13:29 04/22/21 13:37 Ringers, Lactated IV 04/22/21 14:29 999 mls/hr .BOLUS ONE Administration Insulin Regular in 0.9 % NACL 100 mls @ 13.154 mls/hr 04/22/21 15:30 04/22/21 17:35 Myxredlin In Ns 100 Unit/100 Ml IV 0.03 units/kg/hr TITRATE LETTY 4 mls/hr Titration Protocol 0.1 UNITS/KG/HR Potassium Chloride/Sodium Chloride 1,000 mls @ 125 mls/hr 04/22/21 16:00 Normal Saline With 40 Meq Kcl IV ASDIRECTED LETTY Sodium Chloride 1,000 mls @ 250 mls/hr 04/22/21 16:00 04/22/21 17:17 Sodium Chloride 0.45% IV 0 mls/hr ASDIRECTED LETTY Infusion Insulin Regular in 0.9 % NACL 100 mls @ 13.154 mls/hr 04/22/21 16:15 Myxredlin In Ns 100 Unit/100 Ml IV TITRATE LETTY Protocol 0.1 UNITS/KG/HR Lactated Ringer's 1,000 mls @ 250 mls/hr 04/22/21 16:15 04/22/21 17:18 Ringers, Lactated IV 250 mls/hr ASDIRECTED LETTY Administration Potassium Chloride/Dextrose/Sod Cl 1,000 mls @ 125 mls/hr 04/22/21 18:15 D5 1/2 Ns W/ 20 Meq/L Kcl IV ASDIRECTED LETTY Insulin Human Regular 10 unit 04/22/21 15:29 04/22/21 16:02 Insulin Regular, Human 100 Units/Ml 10 Ml Vial SUBCUT 04/22/21 15:30 10 unit ONETIME ONE Administration Protocol Departure - Departure Time of Disposition: 19:56 Disposition: Admitted As Inpatient 68 Clinical Impression: DKA (diabetic ketoacidosis) Qualifiers: Diabetes mellitus type: type 2 Diabetes mellitus complication detail: without coma Qualified Code(s): E11.10 - Type 2 diabetes mellitus with ketoacidosis without coma - Discharge Information Sepsis Event Note (ED) - Evaluation Sepsis Screening Result: No Definite Risk - Focused Exam Vital Signs: Vital Signs Temp Pulse Resp BP Pulse Ox 04/22/21 15:18 88 18 139/76 97 04/22/21 14:40 88 18 140/78 97 04/22/21 13:50 98.0 F 97 18 169/101 H 97 04/22/21 13:24 98.2 F 101 H 18 166/102 H 95 - My Orders Last 24 Hours: My Active Orders 04/22/21 15:29 Dextrose 50% in Water 50 ml IVPUSH ASDIRECTED PRN Glucagon,Human Recombinant [GlucaGen] 1 mg IM ASDIRECTED PRN 04/22/21 15:42 Admission Status [Patient Status] [ADT] Stat - Assessment/Plan Last 24 Hours: My Active Orders 04/22/21 15:29 Dextrose 50% in Water 50 ml IVPUSH ASDIRECTED PRN Glucagon,Human Recombinant [GlucaGen] 1 mg IM ASDIRECTED PRN 04/22/21 15:42 Admission Status [Patient Status] [ADT] Stat
[2021-04-22 15:13] LABS: BLOOD UREA NITROGEN,BUN 16 mg/dL (7.0-18.0); CARBON DIOXIDE,CO2 15.3 mmol/L (21.0-32.0); CHLORIDE,CL 88 mmol/L (98-107); POTASSIUM,K 5.4 mmol/L (3.5-5.1); SODIUM,NA 123 mmol/L (136-148)
[2021-04-22 15:14] LABS: LIPASE 148 U/L (73-393)
[2021-04-22] MEDS ORDERED: 50% Dextrose in Water 50 ML Syringe IVPUSH PRN ×3 (15:29→18:47)
[2021-04-22] MEDS ORDERED: Glucagon,Human Recombinant 1 MG Vial IM PRN ×3 (15:29→18:47)
[2021-04-22] MEDS ORDERED: Insulin Regular, Human 100 Units/ML 10 ML Vial SUBCUT ONE (15:29)
[2021-04-22 15:30] LABS: GLUCOSE RANDOM 781 mg/dL (74-106)
[2021-04-22] MEDS ORDERED: Insulin Regular in 0.9 % NACL 100 ML IV SCH ×3 (15:30→17:05)
[2021-04-22] MEDS ORDERED: Sodium Chloride 0.9% with KCl 1,000 ML IV SCH (16:00)
[2021-04-22] MEDS ORDERED: Sodium Chloride 0.45% 1,000 ML IV SCH (16:00)
[2021-04-22] MEDS ORDERED: Ondansetron 4 MG/2 ML SDV IVPUSH PRN (16:05)
[2021-04-22] MEDS ORDERED: Albuterol/Ipratropium 3.0-0.5 MG/3 ML Neb Soln NEB PRN (16:06)
[2021-04-22] MEDS ORDERED: Pantoprazole 40 MG in Sodium Chloride 0.9% 10 ML IV SCH (16:15)
--- NOTE | 2021-04-22 16:23 | PCM.HP.2 ---
H&P History of Present Illness - General Date of Service: 04/22/21 Admit Problem/Dx: Admission Diagnosis/Problem Admission Diagnosis/Problem Diabetic ketoacidosis - History of Present Illness Initial Comments - Free Text/Narative: 45-year-old male presents to the emergency room with complaints of fatigue and elevated blood sugar. Patient states he has been feeling unwell for the past 1 month. Past medical history include type 2 diabetes, hypertension, hyper triglyceridemia. Patient states he is currently taking Jardiance, Ozempic, Metformin for diabetes. Hydrochlorothiazide, losartan for hypertension. F enofibrate and atorvastatin for hypertriglyceridemia. Patient states that he is not taking any of his home medications for the past 3 to 4 months. Patient states that his blood sugar in the past month has been greater than 400. On admission patient denies fever, chills, headache, change in vision, dizziness, lightheadedness, chest pain, abdominal pain, shortness of breath, nausea, vomiting, dysuria, polyuria, polydipsia. Labs on admission include white blood cell count 7.29, hemoglobin 15.9, platelet 241, ABG pH 7.37, sodium 123, potassium 5.4, chloride 80, BUN 16, creatinine 1.1, glucose 181, lactic acid 3.9. UA negative for Ketones. Patient admitted to the ICU for HHS with metabolic acidosis. Will resume insulin drip and fluids. Monitor electrolytes. - Related Data Allergies/Adverse Reactions: Allergies Allergy/AdvReac Type Severity Reaction Status Date / Time No Known Allergies Allergy Verified 04/22/21 17:47 Home Medications: Home Meds . [No Known Home Meds] 04/22/21 [History] Past Medical History - Past Health History Medical/Surgical History: Denies Medical/Surgical History HEENT History: Reports: None Cardiovascular History: Reports: None Respiratory History: Reports: None Gastrointestinal History: Reports: None Genitourinary History: Reports: None Musculoskeletal History: Reports: None Neurological History: Reports: None Psychiatric History: Reports: None Endocrine/Metabolic History: Reports: Diabetes, Type II Hematologic History: Reports: None Immunologic History: Reports: None Oncologic (Cancer) History: Reports: None Dermatologic History: Reports: None - Infectious Disease History Infectious Disease History: Reports: Chicken Pox - Past Surgical History Head Surgeries/Procedures: Reports: None Social & Family History - Family History Family Medical History: No Pertinent Family History HEENT: Reports: None Endocrine/Metabolic: Reports: Diabetes, type II - Tobacco Use Tobacco Use Status *Q: Never Tobacco User - Caffeine Use Caffeine Use: Reports: None - Recreational Drug Use Recreational Drug Use: No H&P Review of Systems - Review of Systems: Review Of Systems: See Below General: Denies: Fever, Chills HEENT: Denies: Dysphasia Pulmonary: Denies: Shortness of Breath, Wheezing, Cough Cardiovascular: Denies: Chest Pain, Palpitations, Edema Gastrointestinal: Denies: Abdominal Pain, Diarrhea, Decreased Appetite, Nausea, Vomiting Genitourinary: Denies: Dysuria Psychiatric: Denies: Confusion, Depression Neurological: Denies: Confusion, Dizziness Exam - Exam Exam: See Below - Vital Signs Vital Signs: Last Vital Signs Temp 98.0 F 04/22/21 13:50 Pulse 88 04/22/21 15:18 Resp 18 04/22/21 15:18 BP 139/76 04/22/21 15:18 Pulse Ox 97 04/22/21 15:18 Weight: 290 lb - Exam General: Alert, Oriented Lungs: Clear to Auscultation, Normal Respiratory Effort Cardiovascular: Regular Rate, Regular Rhythm GI/Abdominal Exam: Soft, Non-Tender Extremities: No Pedal Edema Neuro Extensive - Mental Status: Alert, Oriented x3 - Patient Data Lab Results Last 24 hrs: Laboratory Results - last 24 hr 04/22/21 04/22/21 04/22/21 Range/Units 13:30 13:30 13:30 WBC 7.29 (4.0-11.0) K/uL RBC 5.17 (4.50-5.90) M/uL Hgb 15.9 (13.0-17.0) g/dL Hct 45.2 (38.0-50.0) % MCV 87.4 (80.0-98.0) fL MCH 30.8 (27.0-32.0) pg MCHC 35.2 (31.0-37.0) g/dL RDW Std Deviation 41.5 (28.0-62.0) fl RDW Coeff of Giorgio 13 (11.0-15.0) % Plt Count 241 (150-400) K/uL MPV 11.00 (7.40-12.00) fL Neut % (Auto) 66.3 (48.0-80.0) % Lymph % (Auto) 22.8 (16.0-40.0) % [place] % (Auto) 8.1 (0.0-15.0) % Eos % (Auto) 2.1 (0.0-7.0) % Baso % (Auto) 0.7 (0.0-1.5) % Neut # (Auto) 4.8 (1.4-5.7) K/uL Lymph # (Auto) 1.7 (0.6-2.4) K/uL [place] # (Auto) 0.6 (0.0-0.8) K/uL Eos # (Auto) 0.2 (0.0-0.7) K/uL Baso # (Auto) 0.1 (0.0-0.1) K/uL Nucleated RBC % 0.0 /100WBC Nucleated RBCs # 0 K/uL INR 0.94 ABG pH (7.35-7.45) ABG pCO2 (35-45) mmHG ABG pO2 (80-105) mmHG ABG HCO3 (22-26) mEq/L ABG Total CO2 (23-27) mmol/L ABG Base Excess (-2.0-3.0) Sodium 123 L (136-148) mmol/L Potassium 5.4 H (3.5-5.1) mmol/L Chloride 88 L (98-107) mmol/L Carbon Dioxide 15.3 L (21.0-32.0) mmol/L BUN 16 (7.0-18.0) mg/dL Creatinine 1.1 (0.8-1.3) mg/dL Est Cr Clr Drug Dosing 103.49 mL/min Estimated GFR (MDRD) > 60.0 ml/min Glucose 781 H* (74-106) mg/dL Lactic Acid (0.4-2.0) mmol/L Calcium 8.0 L (8.5-10.1) mg/dL Magnesium 2.2 (1.8-2.4) mg/dL Total Bilirubin 0.7 (0.2-1.0) mg/dL AST Not Reportable ALT Not Reportable Alkaline Phosphatase 131 H (46-116) U/L Troponin I < 0.050 (0.000-0.056) ng/mL Total Protein 7.4 (6.4-8.2) g/dL Albumin 3.8 (3.4-5.0) g/dL Globulin 3.6 (2.6-4.0) g/dL Albumin/Globulin Ratio 1.1 (0.9-1.6) Lipase 148 (73-393) U/L TSH, Ultra Sensitive 2.13 (0.36-3.74) uIU/mL Urine Color Urine Appearance Urine pH (5.0-8.0) Ur Specific [place] (1.001-1.035) Urine Protein (NEGATIVE) mg/dL Urine Glucose (UA) (NEGATIVE) mg/dL Urine Ketones (NEGATIVE) mg/dL Urine Occult Blood (NEGATIVE) Urine Nitrite (NEGATIVE) Urine Bilirubin (NEGATIVE) Urine Urobilinogen (<2.0) EU/dL Ur Leukocyte Esterase (NEGATIVE) Ketones (NEG) SARS-CoV-2 RNA (SON) (NEGATIVE) 04/22/21 04/22/21 04/22/21 Range/Units 13:30 13:38 13:50 WBC (4.0-11.0) K/uL RBC (4.50-5.90) M/uL Hgb (13.0-17.0) g/dL Hct (38.0-50.0) % MCV (80.0-98.0) fL MCH (27.0-32.0) pg MCHC (31.0-37.0) g/dL RDW Std Deviation (28.0-62.0) fl RDW Coeff of Giorgio (11.0-15.0) % Plt Count (150-400) K/uL MPV (7.40-12.00) fL Neut % (Auto) (48.0-80.0) % Lymph % (Auto) (16.0-40.0) % [place] % (Auto) (0.0-15.0) % Eos % (Auto) (0.0-7.0) % Baso % (Auto) (0.0-1.5) % Neut # (Auto) (1.4-5.7) K/uL Lymph # (Auto) (0.6-2.4) K/uL [place] # (Auto) (0.0-0.8) K/uL Eos # (Auto) (0.0-0.7) K/uL Baso # (Auto) (0.0-0.1) K/uL Nucleated RBC % /100WBC Nucleated RBCs # K/uL INR ABG pH (7.35-7.45) ABG pCO2 (35-45) mmHG ABG pO2 (80-105) mmHG ABG HCO3 (22-26) mEq/L ABG Total CO2 (23-27) mmol/L ABG Base Excess (-2.0-3.0) Sodium (136-148) mmol/L Potassium (3.5-5.1) mmol/L Chloride (98-107) mmol/L Carbon Dioxide (21.0-32.0) mmol/L BUN (7.0-18.0) mg/dL Creatinine (0.8-1.3) mg/dL Est Cr Clr Drug Dosing mL/min Estimated GFR (MDRD) ml/min Glucose (74-106) mg/dL Lactic Acid 3.9 H* (0.4-2.0) mmol/L Calcium (8.5-10.1) mg/dL Magnesium (1.8-2.4) mg/dL Total Bilirubin (0.2-1.0) mg/dL AST ALT Alkaline Phosphatase (46-116) U/L Troponin I (0.000-0.056) ng/mL Total Protein (6.4-8.2) g/dL Albumin (3.4-5.0) g/dL Globulin (2.6-4.0) g/dL Albumin/Globulin Ratio (0.9-1.6) Lipase (73-393) U/L TSH, Ultra Sensitive (0.36-3.74) uIU/mL Urine Color Urine Appearance Urine pH (5.0-8.0) Ur Specific [place] (1.001-1.035) Urine Protein (NEGATIVE) mg/dL Urine Glucose (UA) (NEGATIVE) mg/dL Urine Ketones (NEGATIVE) mg/dL Urine Occult Blood (NEGATIVE) Urine Nitrite (NEGATIVE) Urine Bilirubin (NEGATIVE) Urine Urobilinogen (<2.0) EU/dL Ur Leukocyte Esterase (NEGATIVE) Ketones NEGATIVE (NEG) SARS-CoV-2 RNA (SON) NEGATIVE (NEGATIVE) 04/22/21 04/22/21 Range/Units 13:54 14:18 WBC (4.0-11.0) K/uL RBC (4.50-5.90) M/uL Hgb (13.0-17.0) g/dL Hct (38.0-50.0) % MCV (80.0-98.0) fL MCH (27.0-32.0) pg MCHC (31.0-37.0) g/dL RDW Std Deviation (28.0-62.0) fl RDW Coeff of Giorgio (11.0-15.0) % Plt Count (150-400) K/uL MPV (7.40-12.00) fL Neut % (Auto) (48.0-80.0) % Lymph % (Auto) (16.0-40.0) % [place] % (Auto) (0.0-15.0) % Eos % (Auto) (0.0-7.0) % Baso % (Auto) (0.0-1.5) % Neut # (Auto) (1.4-5.7) K/uL Lymph # (Auto) (0.6-2.4) K/uL [place] # (Auto) (0.0-0.8) K/uL Eos # (Auto) (0.0-0.7) K/uL Baso # (Auto) (0.0-0.1) K/uL Nucleated RBC % /100WBC Nucleated RBCs # K/uL INR ABG pH 7.37 (7.35-7.45) ABG pCO2 39 (35-45) mmHG ABG pO2 47 L (80-105) mmHG ABG HCO3 22 (22-26) mEq/L ABG Total CO2 19.7 L (23-27) mmol/L ABG Base Excess -2.8 L (-2.0-3.0) Sodium (136-148) mmol/L Potassium (3.5-5.1) mmol/L Chloride (98-107) mmol/L Carbon Dioxide (21.0-32.0) mmol/L BUN (7.0-18.0) mg/dL Creatinine (0.8-1.3) mg/dL Est Cr Clr Drug Dosing mL/min Estimated GFR (MDRD) ml/min Glucose (74-106) mg/dL Lactic Acid (0.4-2.0) mmol/L Calcium (8.5-10.1) mg/dL Magnesium (1.8-2.4) mg/dL Total Bilirubin (0.2-1.0) mg/dL AST ALT Alkaline Phosphatase (46-116) U/L Troponin I (0.000-0.056) ng/mL Total Protein (6.4-8.2) g/dL Albumin (3.4-5.0) g/dL Globulin (2.6-4.0) g/dL Albumin/Globulin Ratio (0.9-1.6) Lipase (73-393) U/L TSH, Ultra Sensitive (0.36-3.74) uIU/mL Urine Color YELLOW Urine Appearance CLEAR Urine pH 6.0 (5.0-8.0) Ur Specific [place] <= 1.005 (1.001-1.035) Urine Protein NEGATIVE (NEGATIVE) mg/dL Urine Glucose (UA) >=1000 (NEGATIVE) mg/dL Urine Ketones NEGATIVE (NEGATIVE) mg/dL Urine Occult Blood NEGATIVE (NEGATIVE) Urine Nitrite NEGATIVE (NEGATIVE) Urine Bilirubin NEGATIVE (NEGATIVE) Urine Urobilinogen 0.2 (<2.0) EU/dL Ur Leukocyte Esterase NEGATIVE (NEGATIVE) Ketones (NEG) SARS-CoV-2 RNA (SON) (NEGATIVE) Result Diagrams: 04/22/21 13:30 04/22/21 13:30 Sepsis Event Note - Evaluation Sepsis Screening Result: No Definite Risk - Focused Exam Vital Signs: Vital Signs Temp Pulse Resp BP Pulse Ox 04/22/21 15:18 88 18 139/76 97 04/22/21 14:40 88 18 140/78 97 04/22/21 13:50 98.0 F 97 18 169/101 H 97 04/22/21 13:24 98.2 F 101 H 18 166/102 H 95 - Problem List (1) Hypertension SNOMED Code(s): 84404606 ICD Code: I10 - ESSENTIAL (PRIMARY) HYPERTENSION Status: Acute Current Visit: Yes (2) Hypertriglyceridemia SNOMED Code(s): 944174936 ICD Code: E78.1 - PURE HYPERGLYCERIDEMIA Status: Acute Current Visit: Yes (3) Diabetes type 2, uncontrolled SNOMED Code(s): 574185890, 535142103 ICD Code: E11.65 - TYPE 2 DIABETES MELLITUS WITH HYPERGLYCEMIA Status: Acute Current Visit: Yes (4) Hyperosmolar hyperglycemic state (HHS) SNOMED Code(s): 447369131 ICD Code: E11.00 - TYPE 2 DIAB W HYPROSM W/O NONKET HYPRGLY-HYPROS COMA (NKHHC); E11.65 - TYPE 2 DIABETES MELLITUS WITH HYPERGLYCEMIA Status: Acute Current Visit: Yes (5) Metabolic acidosis due to diabetes mellitus SNOMED Code(s): 260167408 ICD Code: E11.69 - TYPE 2 DIABETES MELLITUS WITH OTHER SPECIFIED COMPLICATION; E87.2 - ACIDOSIS Status: Acute Current Visit: Yes Problem List Initiated/Reviewed/Updated: Yes Orders Last 24hrs: Active Orders 24 hr Category Date Time Status Admission Status [Patient Status] [ADT] Stat ADT 04/22/21 15:42 Active Accu Check [Blood Glucose Check, Bedside] [RC] Q1H Care 04/22/21 16:05 Ordered Antiembolic Devices [RC] PER UNIT ROUTINE Care 04/22/21 16:06 Ordered Oxygen Therapy [RC] PRN Care 04/22/21 16:07 Ordered RT Aerosol Therapy [RC] ASDIRECTED Care 04/22/21 16:07 Ordered VTE/DVT Education [RC] PER UNIT ROUTINE Care 04/22/21 16:07 Ordered Vital Signs [RC] Q4H Care 04/22/21 16:07 Ordered NPO After Midnight [Nothing per Oral After Midnight Diet 04/22/21 Dinner Acti ve Diet] [DIET] BASIC METABOLIC PANEL,BMP [CHEM] Q4H Lab 04/22/21 17:30 Ordered BASIC METABOLIC PANEL,BMP [CHEM] Q4H Lab 04/22/21 21:30 Ordered BASIC METABOLIC PANEL,BMP [CHEM] Q4H Lab 04/23/21 01:30 Ordered BASIC METABOLIC PANEL,BMP [CHEM] Q4H Lab 04/23/21 05:30 Ordered GLYCOSYLATED HEMOGLOBIN,HGBA1C [CHEM] Routine Lab 04/22/21 15:54 Ordered LIPID PANEL [CHEM] Routine Lab 04/22/21 15:51 Ordered REFLEX LACTIC ACID YES OR NO [CHEM] Routine Lab 04/22/21 15:36 Received Albuterol/Ipratropium [DuoNeb 3.0-0.5 MG/3 ML] Med 04/22/21 16:06 Ordered 3 ml NEB Q4HRRT PRN Dextrose 50% in Water Med 04/22/21 15:29 Active 50 ml IVPUSH ASDIRECTED PRN Glucagon,Human Recombinant [GlucaGen] Med 04/22/21 15:29 Active 1 mg IM ASDIRECTED PRN Insulin Regular in 0.9 % NACL [Myxredlin in NS 100 UNIT Med 04/22/21 15:30 Active /100 ML] 100 ml IV TITRATE Insulin Regular in 0.9 % NACL [Myxredlin in NS 100 UNIT Med 04/22/21 16:15 Ordered /100 ML] 100 ml IV TITRATE Lactated Ringers [Ringers, Lactated] 1,000 ml Med 04/22/21 13:30 Active IV ASDIRECTED Lactated Ringers [Ringers, Lactated] 1,000 ml Med 04/22/21 16:15 Ordered IV ASDIRECTED Ondansetron [Zofran] Med 04/22/21 16:05 Ordered 4 mg IVPUSH Q4H PRN Pantoprazole [ProTONIX IV] 40 mg Med 04/22/21 16:15 Ordered Sodium Chloride 0.9% [Normal Saline] 10 ml IV Q24H Sodium Chloride 0.45% 1,000 ml Med 04/22/21 16:00 Active IV ASDIRECTED SCD [Sequential Compression Device] [OM.PC] Routine Oth 04/22/21 16:06 Ordered Resuscitation Status Routine Resus Stat 04/22/21 16:07 Ordered Medication Orders Albuterol/Ipratropium (Albuterol/Ipratropium 3.0-0.5 Mg/3 Ml Neb Soln) 3 ml NEB Q4HRRT PRN PRN Reason: Shortness of Breath Dextrose/Water (50% Dextrose In Water 50 Ml Syringe) 50 ml IVPUSH ASDIRECTED PRN PRN Reason: Hypoglycemia Glucagon (Glucagon,Human Recombinant 1 Mg Vial) 1 mg IM ASDIRECTED PRN PRN Reason: Hypoglycemia Lactated Ringer's (Ringers, Lactated) 1,000 mls @ 999 mls/hr IV ASDIRECTED LETTY Last Admin: 04/22/21 13:37 Dose: 999 mls/hr Documented by: TONI Insulin Regular in 0.9 % NACL (Myxredlin In Ns 100 Unit/100 Ml) 100 mls @ 13.154 mls/hr IV TITRATE LETTY; Protocol Last Admin: 04/22/21 16:03 Dose: 0.1 units/kg/hr, 13.154 mls/hr Documented by: TONI Cosigned by: ROSLYN Sodium Chloride (Sodium Chloride 0.45%) 1,000 mls @ 250 mls/hr IV ASDIRECTED LETTY Last Admin: 04/22/21 16:04 Dose: 250 mls/hr Documented by: TONI Pantoprazole Sodium 40 mg/ (Sodium Chloride) 10 mls @ 300 mls/hr IV Q24H LETTY Insulin Regular in 0.9 % NACL (Myxredlin In Ns 100 Unit/100 Ml) 100 mls @ 13.1 54 mls/hr IV TITRATE LETTY; Protocol Lactated Ringer's (Ringers, Lactated) 1,000 mls @ 250 mls/hr IV ASDIRECTED LETTY Ondansetron HCl (Ondansetron 4 Mg/2 Ml Sdv) 4 mg IVPUSH Q4H PRN PRN Reason: Nausea/Vomiting Assessment/Plan Comment:: HHS with mild metabolic acidosis- Anion Gap 20. Urine Ketone negative. Insulin drip per protocol, patient received 2 LR boluses in ED, continue LR at 250 mL/h, BMP every 4, Accu-Cheks every hour, n.p.o. except sips of water, monitor labs for electrolytes as needed, Zofran as needed, IV Protonix, DuoNebs as needed, SCDs. Patient states home medications to include Ozempic, Metformin, Jardiance, losartan, Hydrochlorothiazide, fenofibrate, atorvastatin. Will resume as needed.
--- NOTE | 2021-04-22 18:04 | PN ---
THC Physician - Brief Progress [id number]/16/2021 17:59[facility] [place] hook, MARCO ANTONIO - MAGLAIE (ELSIE) - MAGALIE OCONNELLNIKKIChase JohnsonDate of Service 04/22/2021 17:59HPI/Events o f Note eICU Admission NotePatient is a 45-year-old male admitted for management of DKAOn cameraxthe p atient is awake, laying comfortably in bedReviewedVitalsEMR notesLabsAvailable imagingAvailable micro MedicationseICU impressionsDKADiabetesQI measureseICU recommendationsDKA management per protocolMaint ain on insulin drip until anion gap is closed x2 checks and serum bicarb is greater than 18, patient can then be transitioned to long-acting insulin with a 1 hour overlap with insulin dripVTE prophylaxi s noted with SCDsGI prophylaxis: PPIThank you for allowing us to participate in the care of your daniela ent.Interventions Nkcoc-Bhuj-Dghu disturbance - evaluation and management, Hyperglycemia - active tit ration of insulin therapy
[2021-04-22 18:11] LABS: BLOOD UREA NITROGEN,BUN 13 mg/dL (7.0-18.0); CARBON DIOXIDE,CO2 25.6 mmol/L (21.0-32.0); CHLORIDE,CL 97 mmol/L (98-107); GLUCOSE RANDOM 279 mg/dL (74-106); POTASSIUM,K 3.7 mmol/L (3.5-5.1); SODIUM,NA 133 mmol/L (136-148)
[2021-04-22] MEDS ORDERED: Dextrose 5%-0.45% NaCl 1,000 ML IV SCH (18:15)
[2021-04-22] MEDS ORDERED: D5 1/2 NS w/ 20 mEq/L KCl 1,000 ML IV SCH (18:15)
--- NOTE | 2021-04-22 18:32 | PCM.EKG ---
#1 Interpretation EKG Date: 04/22/21 Time: 13:50 Rhythm: NSR Rate (Beats/Min): 97 [place]: Normal P-Wave: Present QRS: RBBB ST-T: Normal QT: Normal Comparison: No Change (11/07/16) EKG Interpretation Comments: Sinus with RBBB
[2021-04-22] MEDS: Insulin Glargine,Human Rec. Analog 100 Units/ML 3 ML Pen SUBCUT SCH ×2 (19:05→21:07)
[2021-04-22 19:19] VITALS: PULSE 86
[2021-04-22 21:56] LABS: BLOOD UREA NITROGEN,BUN 12 mg/dL (7.0-18.0); CARBON DIOXIDE,CO2 27.1 mmol/L (21.0-32.0); CHLORIDE,CL 100 mmol/L (98-107); GLUCOSE RANDOM 201 mg/dL (74-106); POTASSIUM,K 3.7 mmol/L (3.5-5.1); SODIUM,NA 137 mmol/L (136-148)
[2021-04-23 06:11] LABS: BLOOD UREA NITROGEN,BUN 12 mg/dL (7.0-18.0); CHLORIDE,CL 100 mmol/L (98-107); GLUCOSE RANDOM 276 mg/dL (74-106); SODIUM,NA 134 mmol/L (136-148)
[2021-04-23] MEDS ORDERED: Insulin Aspart 100 Units/ML 3 ML Pen SUBCUT SCH (07:30)
[2021-04-23 10:30] VITALS: BP 122/82
--- NOTE | 2021-04-23 11:11 | PCM.DCSUM1 ---
Discharge Summary - Hospital Course Free Text/Narrative:: 45-year-old male presents to the emergency room on 04-22-21 with complaints of fatigue and elevated blood sugar. Patient states he has been feeling unwell for the past 1 month. Past medical history include type 2 diabetes, hypertension, hyper triglyceridemia. Patient states he is currently taking Jardiance, Ozempic, Metformin for diabetes. Hydrochlorothiazide, losartan for hypertension. Fenofibrate and atorvastatin for hypertriglyceridemia. Patient states that he is not taking any of his home medications for the past 3 to 4 months. Patient states that his blood sugar in the past month has been greater than 400. On admission patient denies fever, chills, headache, change in vision, dizziness, lightheadedness, chest pain, abdominal pain, shortness of breath, nausea, vomiting, dysuria, polyuria, polydipsia. Labs on admission include white blood cell count 7.29, hemoglobin 15.9, platelet 241, ABG pH 7.37, sodium 123, potassium 5.4, chloride 80, BUN 16, creatinine 1.1, glucose 181, lactic acid 3.9. UA negative for Ketones. Patient admitted to the ICU for HHS with metabolic acidosis. Treated with insulin drip and fluids. Monitor electrolytes. Patient was transitioned to insulin sub q and tolerated diet well. At discharge, patient's home diabetes medications of Jardiance, Ozempic, Metformin were discontinued. Patient prescribed 10 units of Lantus taken prior to bedtime with glucose check prior administration, NovoLog sliding scale insulin low protocol with meals. Patient encouraged to consume low carbohydrate, low-fat foods and abstain from alcohol consumption. Patient's hypertensive medications of hydrochlorothiazide and losartan resumed, patient's hypertriglyceridemia medications of fenofibrate, atorvastatin resumed on discharge. In addition patient to start vascepa 2gm bid for triglyceride reduction. Medication dosages to be adjusted by PCP at follow up appointment. Patient discharged home in stable condition. - Discharge Data Discharge Date: 04/23/21 Discharge Disposition: Home, Self-Care 01 Condition: Stable - Referral to Home Health Primary Care Physician: Kash Rasmussen MD - Discharge Diagnosis/Problem(s) (1) Hypertension SNOMED Code(s): 37020136 ICD Code: I10 - ESSENTIAL (PRIMARY) HYPERTENSION Status: Acute (2) Hypertriglyceridemia SNOMED Code(s): 669583537 ICD Code: E78.1 - PURE HYPERGLYCERIDEMIA Status: Acute (3) Diabetes type 2, uncontrolled SNOMED Code(s): 553977582, 661352607 ICD Code: E11.65 - TYPE 2 DIABETES MELLITUS WITH HYPERGLYCEMIA Status: Acute (4) Hyperosmolar hyperglycemic state (HHS) SNOMED Code(s): 133890535 ICD Code: E11.00 - TYPE 2 DIAB W HYPROSM W/O NONKET HYPRGLY-HYPROS COMA ([facility]); E11.65 - TYPE 2 DIABETES MELLITUS WITH HYPERGLYCEMIA Status: Acute (5) Metabolic acidosis due to diabetes mellitus SNOMED Code(s): 128798575 ICD Code: E11.69 - TYPE 2 DIABETES MELLITUS WITH OTHER SPECIFIED COMPLICATION; E87.2 - ACIDOSIS Status: Acute - Patient Instructions Diet: Diabetic Diet Other/Special Instructions: PATIENT TO REDUCE CONSUMPTION OF SIMPLE CARBOHYDRATES, SUGARS AND FATS. ABSTAIN FROM ALCOHOL COMSUMPTION - Discharge Plan *PRESCRIPTION DRUG MONITORING PROGRAM REVIEWED*: Not Applicable *COPY OF PRESCRIPTION DRUG MONITORING REPORT IN PATIENT ANNEMARIE: Not Applicable Prescriptions/Med Rec: Blood-Glucose Meter [Contour Next Glucose Meter] 1 each DAILY #1 kit Lancets/Blood Glucose Strips [Fora [id number] Strp-Lnct] 1 each TID #30 combo..pkg Blood Sugar Diagnostic [Glucose Test Strip] 1 each TID #120 strip Insulin Glarg,Human.Rec.Analog [Lantus] 10 unit SUBCUT DAILY #1 pen Insulin Aspart [NovoLOG] See Protocol SUBCUT TIDAC #1 pen Icosapent Ethyl [Vascepa] 2 gm PO BID #120 capsule Home Medications: Home Meds Blood Sugar Diagnostic [Glucose Test Strip] 1 each TID #120 strip 04/23/21 [Rx] Blood-Glucose Meter [Contour Next Glucose Meter] 1 each DAILY #1 kit 04/23/21 [Rx] Fenofibrate Nanocrystallized [Fenofibrate] 145 mg PO DAILY 04/23/21 [History] Icosapent Ethyl [Vascepa] 2 gm PO BID #120 capsule 04/23/21 [Rx] Insulin Aspart [NovoLOG] See Protocol SUBCUT TIDAC #1 pen 04/23/21 [Rx] Insulin Glarg,Human.Rec.Analog [Lantus] 10 unit SUBCUT DAILY #1 pen 04/23/21 [Rx] Lancets/Blood Glucose Strips [Fora [id number] Strp-Lnct] 1 each TID #30 combo..pkg 04/23/21 [Rx] Losartan [Cozaar] 100 mg PO DAILY 04/23/21 [History] atorvaSTATin [Lipitor] 40 mg PO BEDTIME 04/23/21 [History] hydroCHLOROthiazide [Hydrochlorothiazide] 12.5 mg PO DAILY 04/23/21 [History] Patient Handouts: Insulin Aspart injection, Preventing High Cholesterol, Diabetic Ketoacidosis, Hyperglycemia, [id number], Insulin Glargine injection, Preventing Diabetic Ketoacidosis, Icosapent ethyl capsules, High Cholesterol Referrals: Kash Rasmussen MD [Primary Care Provider] - 04/25/21 9:00 am (Please arrive 15 minutes before appointment. Please bring photo ID with insurance and wear mask.) - Discharge Summary/Plan Comment DC Time >30 min.: Yes Total # of Minutes for Discharge Time: 45 minutes - General Info Date of Service: 04/23/21 - Review of Systems General: Denies: Fever, Chills Pulmonary: Denies: Shortness of Breath Cardiovascular: Denies: Chest Pain, Dyspnea on Exertion, Edema Gastrointestinal: Denies: Abdominal Pain, Nausea, Vomiting Neurological: Denies: Confusion, Dizziness, Headache Psychiatric: Denies: Confusion - Patient Data Vitals - Most Recent: Last Vital Signs Temp 96 F L 04/23/21 07:00 Pulse 86 04/22/21 19:00 Resp 14 04/23/21 10:00 BP 122/82 04/23/21 10:00 Pulse Ox 94 L 04/23/21 10:00 Weight - Most Recent: 293 lb 8 oz I&O - Last 24 hours: Intake & Output 04/22/21 04/23/21 04/23/21 22:59 06:59 14:59 Intake Total 2170 Output Total 0 Balance 2170 Lab Results - Last 24 hrs: Laboratory Results - last 24 hr 04/22/21 04/22/21 04/22/21 Range/Units 13:30 13:30 13:30 WBC 7.29 (4.0-11.0) K/uL RBC 5.17 (4.50-5.90) M/uL Hgb 15.9 (13.0-17.0) g/dL Hct 45.2 (38.0-50.0) % MCV 87.4 (80.0-98.0) fL MCH 30.8 (27.0-32.0) pg MCHC 35.2 (31.0-37.0) g/dL RDW Std Deviation 41.5 (28.0-62.0) fl RDW Coeff of Giorgio 13 (11.0-15.0) % Plt Count 241 (150-400) K/uL MPV 11.00 (7.40-12.00) fL Neut % (Auto) 66.3 (48.0-80.0) % Lymph % (Auto) 22.8 (16.0-40.0) % [place] % (Auto) 8.1 (0.0-15.0) % Eos % (Auto) 2.1 (0.0-7.0) % Baso % (Auto) 0.7 (0.0-1.5) % Neut # (Auto) 4.8 (1.4-5.7) K/uL Lymph # (Auto) 1.7 (0.6-2.4) K/uL [place] # (Auto) 0.6 (0.0-0.8) K/uL Eos # (Auto) 0.2 (0.0-0.7) K/uL Baso # (Auto) 0.1 (0.0-0.1) K/uL Nucleated RBC % 0.0 /100WBC Nucleated RBCs # 0 K/uL INR 0.94 ABG pH (7.35-7.45) ABG pCO2 (35-45) mmHG ABG pO2 (80-105) mmHG ABG HCO3 (22-26) mEq/L ABG Total CO2 (23-27) mmol/L ABG Base Excess (-2.0-3.0) Sodium 123 L (136-148) mmol/L Potassium 5.4 H (3.5-5.1) mmol/L Chloride 88 L (98-107) mmol/L Carbon Dioxide 15.3 L (21.0-32.0) mmol/L BUN 16 (7.0-18.0) mg/dL Creatinine 1.1 (0.8-1.3) mg/dL Est Cr Clr Drug Dosing 103.49 mL/min Estimated GFR (MDRD) > 60.0 ml/min Glucose 781 H* (74-106) mg/dL POC Glucose (70-99) mg/dL Hemoglobin A1c (4.5 - 6.2) % Lactic Acid (0.4-2.0) mmol/L Calcium 8.0 L (8.5-10.1) mg/dL Phosphorus (2.6-4.7) mg/dL Magnesium 2.2 (1.8-2.4) mg/dL Total Bilirubin 0.7 (0.2-1.0) mg/dL AST 38 H (15-37) IU/L ALT 60 (14-63) IU/L Alkaline Phosphatase 131 H (46-116) U/L Troponin I < 0.050 (0.000-0.056) ng/mL Total Protein 7.4 (6.4-8.2) g/dL Albumin 3.8 (3.4-5.0) g/dL Globulin 3.6 (2.6-4.0) g/dL Albumin/Globulin Ratio 1.1 (0.9-1.6) Triglycerides (0-200) mg/dL Cholesterol (50-200) mg/dL HDL Cholesterol (40-60) mg/dL Cholesterol/HDL Ratio (3.3-6.0) Lipase 148 (73-393) U/L TSH, Ultra Sensitive 2.13 (0.36-3.74) uIU/mL Urine Color Urine Appearance Urine pH (5.0-8.0) Ur Specific [place] (1.001-1.035) Urine Protein (NEGATIVE) mg/dL Urine Glucose (UA) (NEGATIVE) mg/dL Urine Ketones (NEGATIVE) mg/dL Urine Occult Blood (NEGATIVE) Urine Nitrite (NEGATIVE) Urine Bilirubin (NEGATIVE) Urine Urobilinogen (<2.0) EU/dL Ur Leukocyte Esterase (NEGATIVE) Ketones (NEG) SARS-CoV-2 RNA (SON) (NEGATIVE) 04/22/21 04/22/21 04/22/21 Range/Units 13:30 13:38 13:50 WBC (4.0-11.0) K/uL RBC (4.50-5.90) M/uL Hgb (13.0-17.0) g/dL Hct (38.0-50.0) % MCV (80.0-98.0) fL MCH (27.0-32.0) pg MCHC (31.0-37.0) g/dL RDW Std Deviation (28.0-62.0) fl RDW Coeff of Giorgio (11.0-15.0) % Plt Count (150-400) K/uL MPV (7.40-12.00) fL Neut % (Auto) (48.0-80.0) % Lymph % (Auto) (16.0-40.0) % [place] % (Auto) (0.0-15.0) % Eos % (Auto) (0.0-7.0) % Baso % (Auto) (0.0-1.5) % Neut # (Auto) (1.4-5.7) K/uL Lymph # (Auto) (0.6-2.4) K/uL [place] # (Auto) (0.0-0.8) K/uL Eos # (Auto) (0.0-0.7) K/uL Baso # (Auto) (0.0-0.1) K/uL Nucleated RBC % /100WBC Nucleated RBCs # K/uL INR ABG pH (7.35-7.45) ABG pCO2 (35-45) mmHG ABG pO2 (80-105) mmHG ABG HCO3 (22-26) mEq/L ABG Total CO2 (23-27) mmol/L ABG Base Excess (-2.0-3.0) Sodium (136-148) mmol/L Potassium (3.5-5.1) mmol/L Chloride (98-107) mmol/L Carbon Dioxide (21.0-32.0) mmol/L BUN (7.0-18.0) mg/dL Creatinine (0.8-1.3) mg/dL Est Cr Clr Drug Dosing mL/min Estimated GFR (MDRD) ml/min Glucose (74-106) mg/dL POC Glucose (70-99) mg/dL Hemoglobin A1c (4.5 - 6.2) % Lactic Acid 3.9 H* (0.4-2.0) mmol/L Calcium (8.5-10.1) mg/dL Phosphorus (2.6-4.7) mg/dL Magnesium (1.8-2.4) mg/dL Total Bilirubin (0.2-1.0) mg/dL AST (15-37) IU/L ALT (14-63) IU/L Alkaline Phosphatase (46-116) U/L Troponin I (0.000-0.056) ng/mL Total Protein (6.4-8.2) g/dL Albumin (3.4-5.0) g/dL Globulin (2.6-4.0) g/dL Albumin/Globulin Ratio (0.9-1.6) Triglycerides (0-200) mg/dL Cholesterol (50-200) mg/dL HDL Cholesterol (40-60) mg/dL Cholesterol/HDL Ratio (3.3-6.0) Lipase (73-393) U/L TSH, Ultra Sensitive (0.36-3.74) uIU/mL Urine Color Urine Appearance Urine pH (5.0-8.0) Ur Specific [place] (1.001-1.035) Urine Protein (NEGATIVE) mg/dL Urine Glucose (UA) (NEGATIVE) mg/dL Urine Ketones (NEGATIVE) mg/dL Urine Occult Blood (NEGATIVE) Urine Nitrite (NEGATIVE) Urine Bilirubin (NEGATIVE) Urine Urobilinogen (<2.0) EU/dL Ur Leukocyte Esterase (NEGATIVE) Ketones NEGATIVE (NEG) SARS-CoV-2 RNA (SON) NEGATIVE (NEGATIVE) 04/22/21 04/22/21 04/22/21 Range/Units 13:50 13:54 14:18 WBC (4.0-11.0) K/uL RBC (4.50-5.90) M/uL Hgb (13.0-17.0) g/dL Hct (38.0-50.0) % MCV (80.0-98.0) fL MCH (27.0-32.0) pg MCHC (31.0-37.0) g/dL RDW Std Deviation (28.0-62.0) fl RDW Coeff of Giorgio (11.0-15.0) % Plt Count (150-400) K/uL MPV (7.40-12.00) fL Neut % (Auto) (48.0-80.0) % Lymph % (Auto) (16.0-40.0) % [place] % (Auto) (0.0-15.0) % Eos % (Auto) (0.0-7.0) % Baso % (Auto) (0.0-1.5) % Neut # (Auto) (1.4-5.7) K/uL Lymph # (Auto) (0.6-2.4) K/uL [place] # (Auto) (0.0-0.8) K/uL Eos # (Auto) (0.0-0.7) K/uL Baso # (Auto) (0.0-0.1) K/uL Nucleated RBC % /100WBC Nucleated RBCs # K/uL INR ABG pH 7.37 (7.35-7.45) ABG pCO2 39 (35-45) mmHG ABG pO2 47 L (80-105) mmHG ABG HCO3 22 (22-26) mEq/L ABG Total CO2 19.7 L (23-27) mmol/L ABG Base Excess -2.8 L (-2.0-3.0) Sodium (136-148) mmol/L Potassium (3.5-5.1) mmol/L Chloride (98-107) mmol/L Carbon Dioxide (21.0-32.0) mmol/L BUN (7.0-18.0) mg/dL Creatinine (0.8-1.3) mg/dL Est Cr Clr Drug Dosing mL/min Estimated GFR (MDRD) ml/min Glucose (74-106) mg/dL POC Glucose (70-99) mg/dL Hemoglobin A1c 13.0 H (4.5 - 6.2) % Lactic Acid (0.4-2.0) mmol/L Calcium (8.5-10.1) mg/dL Phosphorus (2.6-4.7) mg/dL Magnesium (1.8-2.4) mg/dL Total Bilirubin (0.2-1.0) mg/dL AST (15-37) IU/L ALT (14-63) IU/L Alkaline Phosphatase (46-116) U/L Troponin I (0.000-0.056) ng/mL Total Protein (6.4-8.2) g/dL Albumin (3.4-5.0) g/dL Globulin (2.6-4.0) g/dL Albumin/Globulin Ratio (0.9-1.6) Triglycerides (0-200) mg/dL Cholesterol (50-200) mg/dL HDL Cholesterol (40-60) mg/dL Cholesterol/HDL Ratio (3.3-6.0) Lipase (73-393) U/L TSH, Ultra Sensitive (0.36-3.74) uIU/mL Urine Color YELLOW Urine Appearance CLEAR Urine pH 6.0 (5.0-8.0) Ur Specific [place] <= 1.005 (1.001-1.035) Urine Protein NEGATIVE (NEGATIVE) mg/dL Urine Glucose (UA) >=1000 (NEGATIVE) mg/dL Urine Ketones NEGATIVE (NEGATIVE) mg/dL Urine Occult Blood NEGATIVE (NEGATIVE) Urine Nitrite NEGATIVE (NEGATIVE) Urine Bilirubin NEGATIVE (NEGATIVE) Urine Urobilinogen 0.2 (<2.0) EU/dL Ur Leukocyte Esterase NEGATIVE (NEGATIVE) Ketones (NEG) SARS-CoV-2 RNA (SON) (NEGATIVE) 04/22/21 04/22/21 04/22/21 Range/Units 17:01 17:41 17:41 WBC (4.0-11.0) K/uL RBC (4.50-5.90) M/uL Hgb (13.0-17.0) g/dL Hct (38.0-50.0) % MCV (80.0-98.0) fL MCH (27.0-32.0) pg MCHC (31.0-37.0) g/dL RDW Std Deviation (28.0-62.0) fl RDW Coeff of Giorgio (11.0-15.0) % Plt Count (150-400) K/uL MPV (7.40-12.00) fL Neut % (Auto) (48.0-80.0) % Lymph % (Auto) (16.0-40.0) % [place] % (Auto) (0.0-15.0) % Eos % (Auto) (0.0-7.0) % Baso % (Auto) (0.0-1.5) % Neut # (Auto) (1.4-5.7) K/uL Lymph # (Auto) (0.6-2.4) K/uL [place] # (Auto) (0.0-0.8) K/uL Eos # (Auto) (0.0-0.7) K/uL Baso # (Auto) (0.0-0.1) K/uL Nucleated RBC % /100WBC Nucleated RBCs # K/uL INR ABG pH (7.35-7.45) ABG pCO2 (35-45) mmHG ABG pO2 (80-105) mmHG ABG HCO3 (22-26) mEq/L ABG Total CO2 (23-27) mmol/L ABG Base Excess (-2.0-3.0) Sodium 133 L (136-148) mmol/L Potassium 3.7 (3.5-5.1) mmol/L Chloride 97 L (98-107) mmol/L Carbon Dioxide 25.6 (21.0-32.0) mmol/L BUN 13 (7.0-18.0) mg/dL Creatinine 0.8 (0.8-1.3) mg/dL Est Cr Clr Drug Dosing 143.06 mL/min Estimated GFR (MDRD) > 60.0 ml/min Glucose 279 H (74-106) mg/dL POC Glucose 337 H (70-99) mg/dL Hemoglobin A1c (4.5 - 6.2) % Lactic Acid (0.4-2.0) mmol/L Calcium 8.1 L (8.5-10.1) mg/dL Phosphorus 3.1 (2.6-4.7) mg/dL Magnesium 2.1 (1.8-2.4) mg/dL Total Bilirubin (0.2-1.0) mg/dL AST (15-37) IU/L ALT (14-63) IU/L Alkaline Phosphatase (46-116) U/L Troponin I (0.000-0.056) ng/mL Total Protein (6.4-8.2) g/dL Albumin (3.4-5.0) g/dL Globulin (2.6-4.0) g/dL Albumin/Globulin Ratio (0.9-1.6) Triglycerides 2584 H (0-200) mg/dL Cholesterol 282 H (50-200) mg/dL HDL Cholesterol 24 L (40-60) mg/dL Cholesterol/HDL Ratio 11.8 H (3.3-6.0) Lipase (73-393) U/L TSH, Ultra Sensitive (0.36-3.74) uIU/mL Urine Color Urine Appearance Urine pH (5.0-8.0) Ur Specific [place] (1.001-1.035) Urine Protein (NEGATIVE) mg/dL Urine Glucose (UA) (NEGATIVE) mg/dL Urine Ketones (NEGATIVE) mg/dL Urine Occult Blood (NEGATIVE) Urine Nitrite (NEGATIVE) Urine Bilirubin (NEGATIVE) Urine Urobilinogen (<2.0) EU/dL Ur Leukocyte Esterase (NEGATIVE) Ketones (NEG) SARS-CoV-2 RNA (SON) (NEGATIVE) 04/22/21 04/22/21 04/22/21 Range/Units 18:03 19:00 19:52 WBC (4.0-11.0) K/uL RBC (4.50-5.90) M/uL Hgb (13.0-17.0) g/dL Hct (38.0-50.0) % MCV (80.0-98.0) fL MCH (27.0-32.0) pg MCHC (31.0-37.0) g/dL RDW Std Deviation (28.0-62.0) fl RDW Coeff of Giorgio (11.0-15.0) % Plt Count (150-400) K/uL MPV (7.40-12.00) fL Neut % (Auto) (48.0-80.0) % Lymph % (Auto) (16.0-40.0) % [place] % (Auto) (0.0-15.0) % Eos % (Auto) (0.0-7.0) % Baso % (Auto) (0.0-1.5) % Neut # (Auto) (1.4-5.7) K/uL Lymph # (Auto) (0.6-2.4) K/uL [place] # (Auto) (0.0-0.8) K/uL Eos # (Auto) (0.0-0.7) K/uL Baso # (Auto) (0.0-0.1) K/uL Nucleated RBC % /100WBC Nucleated RBCs # K/uL INR ABG pH (7.35-7.45) ABG pCO2 (35-45) mmHG ABG pO2 (80-105) mmHG ABG HCO3 (22-26) mEq/L ABG Total CO2 (23-27) mmol/L ABG Base Excess (-2.0-3.0) Sodium (136-148) mmol/L Potassium (3.5-5.1) mmol/L Chloride (98-107) mmol/L Carbon Dioxide (21.0-32.0) mmol/L BUN (7.0-18.0) mg/dL Creatinine (0.8-1.3) mg/dL Est Cr Clr Drug Dosing mL/min Estimated GFR (MDRD) ml/min Glucose (74-106) mg/dL POC Glucose 219 H 244 H (70-99) mg/dL Hemoglobin A1c (4.5 - 6.2) % Lactic Acid 3.7 H* (0.4-2.0) mmol/L Calcium (8.5-10.1) mg/dL Phosphorus (2.6-4.7) mg/dL Magnesium (1.8-2.4) mg/dL Total Bilirubin (0.2-1.0) mg/dL AST (15-37) IU/L ALT (14-63) IU/L Alkaline Phosphatase (46-116) U/L Troponin I (0.000-0.056) ng/mL Total Protein (6.4-8.2) g/dL Albumin (3.4-5.0) g/dL Globulin (2.6-4.0) g/dL Albumin/Globulin Ratio (0.9-1.6) Triglycerides (0-200) mg/dL Cholesterol (50-200) mg/dL HDL Cholesterol (40-60) mg/dL Cholesterol/HDL Ratio (3.3-6.0) Lipase (73-393) U/L TSH, Ultra Sensitive (0.36-3.74) uIU/mL Urine Color Urine Appearance Urine pH (5.0-8.0) Ur Specific [place] (1.001-1.035) Urine Protein (NEGATIVE) mg/dL Urine Glucose (UA) (NEGATIVE) mg/dL Urine Ketones (NEGATIVE) mg/dL Urine Occult Blood (NEGATIVE) Urine Nitrite (NEGATIVE) Urine Bilirubin (NEGATIVE) Urine Urobilinogen (<2.0) EU/dL Ur Leukocyte Esterase (NEGATIVE) Ketones (NEG) SARS-CoV-2 RNA (SON) (NEGATIVE) 04/22/21 04/22/21 04/23/21 Range/Units 21:33 21:33 05:18 WBC 7.97 (4.0-11.0) K/uL RBC 4.74 (4.50-5.90) M/uL Hgb 13.9 (13.0-17.0) g/dL Hct 40.8 (38.0-50.0) % MCV 86.1 (80.0-98.0) fL MCH 29.3 (27.0-32.0) pg MCHC 34.1 (31.0-37.0) g/dL RDW Std Deviation 41.2 (28.0-62.0) fl RDW Coeff of Giorgio 13 (11.0-15.0) % Plt Count 214 (150-400) K/uL MPV 10.30 (7.40-12.00) fL Neut % (Auto) 50.5 (48.0-80.0) % Lymph % (Auto) 37.3 (16.0-40.0) % [place] % (Auto) 6.9 (0.0-15.0) % Eos % (Auto) 4.4 (0.0-7.0) % Baso % (Auto) 0.9 (0.0-1.5) % Neut # (Auto) 4.0 (1.4-5.7) K/uL Lymph # (Auto) 3.0 H (0.6-2.4) K/uL [place] # (Auto) 0.6 (0.0-0.8) K/uL Eos # (Auto) 0.4 (0.0-0.7) K/uL Baso # (Auto) 0.1 (0.0-0.1) K/uL Nucleated RBC % 0.0 /100WBC Nucleated RBCs # 0 K/uL INR ABG pH (7.35-7.45) ABG pCO2 (35-45) mmHG ABG pO2 (80-105) mmHG ABG HCO3 (22-26) mEq/L ABG Total CO2 (23-27) mmol/L ABG Base Excess (-2.0-3.0) Sodium 137 (136-148) mmol/L Potassium 3.7 (3.5-5.1) mmol/L Chloride 100 (98-107) mmol/L Carbon Dioxide 27.1 (21.0-32.0) mmol/L BUN 12 (7.0-18.0) mg/dL Creatinine 0.9 (0.8-1.3) mg/dL Est Cr Clr Drug Dosing 127.16 mL/min Estimated GFR (MDRD) > 60.0 ml/min Glucose 201 H (74-106) mg/dL POC Glucose 177 H (70-99) mg/dL Hemoglobin A1c (4.5 - 6.2) % Lactic Acid (0.4-2.0) mmol/L Calcium 7.8 L (8.5-10.1) mg/dL Phosphorus (2.6-4.7) mg/dL Magnesium (1.8-2.4) mg/dL Total Bilirubin (0.2-1.0) mg/dL AST (15-37) IU/L ALT (14-63) IU/L Alkaline Phosphatase (46-116) U/L Troponin I (0.000-0.056) ng/mL Total Protein (6.4-8.2) g/dL Albumin (3.4-5.0) g/dL Globulin (2.6-4.0) g/dL Albumin/Globulin Ratio (0.9-1.6) Triglycerides (0-200) mg/dL Cholesterol (50-200) mg/dL HDL Cholesterol (40-60) mg/dL Cholesterol/HDL Ratio (3.3-6.0) Lipase (73-393) U/L TSH, Ultra Sensitive (0.36-3.74) uIU/mL Urine Color Urine Appearance Urine pH (5.0-8.0) Ur Specific [place] (1.001-1.035) Urine Protein (NEGATIVE) mg/dL Urine Glucose (UA) (NEGATIVE) mg/dL Urine Ketones (NEGATIVE) mg/dL Urine Occult Blood (NEGATIVE) Urine Nitrite (NEGATIVE) Urine Bilirubin (NEGATIVE) Urine Urobilinogen (<2.0) EU/dL Ur Leukocyte Esterase (NEGATIVE) Ketones (NEG) SARS-CoV-2 RNA (SON) (NEGATIVE) 04/23/21 04/23/21 04/23/21 Range/Units 05:18 05:18 05:29 WBC (4.0-11.0) K/uL RBC (4.50-5.90) M/uL Hgb (13.0-17.0) g/dL Hct (38.0-50.0) % MCV (80.0-98.0) fL MCH (27.0-32.0) pg MCHC (31.0-37.0) g/dL RDW Std Deviation (28.0-62.0) fl RDW Coeff of Giorgio (11.0-15.0) % Plt Count (150-400) K/uL MPV (7.40-12.00) fL Neut % (Auto) (48.0-80.0) % Lymph % (Auto) (16.0-40.0) % [place] % (Auto) (0.0-15.0) % Eos % (Auto) (0.0-7.0) % Baso % (Auto) (0.0-1.5) % Neut # (Auto) (1.4-5.7) K/uL Lymph # (Auto) (0.6-2.4) K/uL [place] # (Auto) (0.0-0.8) K/uL Eos # (Auto) (0.0-0.7) K/uL Baso # (Auto) (0.0-0.1) K/uL Nucleated RBC % /100WBC Nucleated RBCs # K/uL INR ABG pH (7.35-7.45) ABG pCO2 (35-45) mmHG ABG pO2 (80-105) mmHG ABG HCO3 (22-26) mEq/L ABG Total CO2 (23-27) mmol/L ABG Base Excess (-2.0-3.0) Sodium 134 L (136-148) mmol/L Potassium 4.0 (3.5-5.1) mmol/L Chloride 100 (98-107) mmol/L Carbon Dioxide 25.0 (21.0-32.0) mmol/L BUN 12 (7.0-18.0) mg/dL Creatinine 0.7 L (0.8-1.3) mg/dL Est Cr Clr Drug Dosing 163.50 mL/min Estimated GFR (MDRD) > 60.0 ml/min Glucose 276 H (74-106) mg/dL POC Glucose 277 H (70-99) mg/dL Hemoglobin A1c (4.5 - 6.2) % Lactic Acid < 0.3 L (0.4-2.0) mmol/L Calcium 7.8 L (8.5-10.1) mg/dL Phosphorus (2.6-4.7) mg/dL Magnesium 1.8 (1.8-2.4) mg/dL Total Bilirubin (0.2-1.0) mg/dL AST (15-37) IU/L ALT (14-63) IU/L Alkaline Phosphatase (46-116) U/L Troponin I (0.000-0.056) ng/mL Total Protein (6.4-8.2) g/dL Albumin (3.4-5.0) g/dL Globulin (2.6-4.0) g/dL Albumin/Globulin Ratio (0.9-1.6) Triglycerides (0-200) mg/dL Cholesterol (50-200) mg/dL HDL Cholesterol (40-60) mg/dL Cholesterol/HDL Ratio (3.3-6.0) Lipase (73-393) U/L TSH, Ultra Sensitive (0.36-3.74) uIU/mL Urine Color Urine Appearance Urine pH (5.0-8.0) Ur Specific [place] (1.001-1.035) Urine Protein (NEGATIVE) mg/dL Urine Glucose (UA) (NEGATIVE) mg/dL Urine Ketones (NEGATIVE) mg/dL Urine Occult Blood (NEGATIVE) Urine Nitrite (NEGATIVE) Urine Bilirubin (NEGATIVE) Urine Urobilinogen (<2.0) EU/dL Ur Leukocyte Esterase (NEGATIVE) Ketones (NEG) SARS-CoV-2 RNA (SON) (NEGATIVE) Med Orders - Current: Current Medications Albuterol/Ipratropium (Albuterol/Ipratropium 3.0-0.5 Mg/3 Ml Neb Soln) 3 ml NEB Q4HRRT PRN PRN Reason: Shortness of Breath Dextrose/Water (50% Dextrose In Water 50 Ml Syringe) 50 ml IVPUSH ASDIRECTED PRN PRN Reason: Hypoglycemia Dextrose/Water (50% Dextrose In Water 50 Ml Syringe) 50 ml IVPUSH ASDIRECTED PRN PRN Reason: Hypoglycemia Glucagon (Glucagon,Human Recombinant 1 Mg Vial) 1 mg IM ASDIRECTED PRN PRN Reason: Hypoglycemia Lactated Ringer's (Ringers, Lactated) 1,000 mls @ 999 mls/hr IV ASDIRECTED LETTY Last Admin: 04/22/21 13:37 Dose: 999 mls/hr Documented by: Pantoprazole Sodium 40 mg/ (Sodium Chloride) 10 mls @ 300 mls/hr IV Q24H LETTY Last Admin: 04/22/21 17:13 Dose: 300 mls/hr Documented by: Insulin Regular in 0.9 % NACL (Myxredlin In Ns 100 Unit/100 Ml) 100 mls @ 4 mls/hr IV TITRATE LETTY; Protocol Last Titration: 04/22/21 21:30 Dose: 0 mls/hr, 0 mls/hr Documented by: Insulin Aspart (Insulin Aspart 100 Units/Ml 3 Ml Pen) 0 unit SUBCUT TIDAC LETTY; Protocol Last Admin: 04/23/21 08:26 Dose: 3 units Documented by: Insulin Glargine (Insulin Glargine,Human Rec. Analog 100 Units/Ml 3 Ml Pen) 5 units SUBCUT BEDTIME LETTY Last Admin: 04/22/21 21:07 Dose: Not Given Documented by: Ondansetron HCl (Ondansetron 4 Mg/2 Ml Sdv) 4 mg IVPUSH Q4H PRN PRN Reason: Nausea/Vomiting Discontinued Medications Glucagon (Glucagon,Human Recombinant 1 Mg Vial) 1 mg IM ASDIRECTED PRN PRN Reason: Hypoglycemia Lactated Ringer's (Ringers, Lactated) 1,000 mls @ 999 mls/hr IV .BOLUS ONE Stop: 04/22/21 14:29 Last Admin: 04/22/21 13:37 Dose: 999 mls/hr Documented by: Insulin Regular in 0.9 % NACL (Myxredlin In Ns 100 Unit/100 Ml) 100 mls @ 13.154 mls/hr IV TITRATE LETTY; Protocol Last Titration: 04/22/21 17:35 Dose: 0.03 units/kg/hr, 4 mls/hr Documented by: Potassium Chloride/Sodium Chloride (Normal Saline With 40 Meq Kcl) 1,000 mls @ 125 mls/hr IV ASDIRECTED LETTY Sodium Chloride (Sodium Chloride 0.45%) 1,000 mls @ 250 mls/hr IV ASDIRECTED LETTY Last Infusion: 04/22/21 17:17 Dose: 0 mls/hr Documented by: Insulin Regular in 0.9 % NACL (Myxredlin In Ns 100 Unit/100 Ml) 100 mls @ 13.154 mls/hr IV TITRATE LETTY; Protocol Lactated Ringer's (Ringers, Lactated) 1,000 mls @ 250 mls/hr IV ASDIRECTED LETTY Last Admin: 04/22/21 17:18 Dose: 250 mls/hr Documented by: Potassium Chloride/Dextrose/Sod Cl (D5 1/2 Ns W/ 20 Meq/L Kcl) 1,000 mls @ 125 mls/hr IV ASDIRECTED LETTY Dextrose/Sodium Chloride (Dextrose 5%-1/2 Ns) 1,000 mls @ 125 mls/hr IV ASDIRECTED LETTY Last Infusion: 04/22/21 18:33 Dose: 0 mls/hr Documented by: Lactated Ringer's (Ringers, Lactated) 1,000 mls @ 125 mls/hr IV ONETIME ONE Stop: 04/23/21 06:52 Last Admin: 04/22/21 22:54 Dose: 125 mls/hr Documented by: Insulin Human Regular (Insulin Regular, Human 100 Units/Ml 10 Ml Vial) 10 unit SUBCUT ONETIME ONE; Protocol Stop: 04/22/21 15:30 Last Admin: 04/22/21 16:02 Dose: 10 unit Documented by: - Exam General: Reports: Alert Lungs: Reports: Clear to Auscultation, Normal Respiratory Effort Cardiovascular: Reports: Regular Rate, Regular Rhythm GI/Abdominal Exam: Soft, Non-Tender
== END 2021-04-23 12:25 | disposition home or self-care (01) | DRG 638 ==
LOC: MW.ED 13:20 → MW.ICU 15:50
PROVIDERS: ADMIT Student in an Organized Health Care Education/Training Program; ATTEND Student in an Organized Health Care Education/Training Program
DX: E11.00 Type 2 diabetes mellitus with hyperosmolarity without nonketotic hyperglycemic-hyperosmolar coma (NKHHC) (principal); E87.2 Acidosis; I10 Essential (primary) hypertension; E78.1 Pure hyperglyceridemia; E11.65 Type 2 diabetes mellitus with hyperglycemia; Z20.822 Contact with and (suspected) exposure to COVID-19; Z91.19 Patient's noncompliance with other medical treatment and regimen; Z79.899 Other long term (current) drug therapy; Z79.4 Long term (current) use of insulin
CPT/HCPCS: 36415; 36600; 80048; 80053; 80061; 81003; 82009; 82803; 82947; 83036; 83605; 83690; 83735; 84100; 84443; 84484; 85025; 85610; 93010; 99284; 99284-25; C9113; J1815; J1815-GY; J7042; J7120; U0002